=== PATIENT | male | born 1960 | race African-American/Black ===

== ENCOUNTER 2017-06-20 10:03 | Emergency (ER) | payer SELFPAY ==
--- NOTE | 2017-06-20 10:44 | ER Document Report ---
ED ENT - General Chief Complaint: Sore Throat Stated Complaint: SORE THROAT Time Seen by Provider: 06/20/17 10:34 Notes: 56 yo male c/o swelling to throat x 2 days TRAVEL OUTSIDE OF THE [place] IN LAST 30 DAYS: No - HPI Patient complains to provider of: Throat problem Onset: Yesterday Onset/Duration: Gradual Quality of pain: Dull Location of pain: Throat Associated symptoms: None, Difficulty swallowing, Swollen glands. denies: Chills, Drooling, Hoarse voice, Neck pain, Runny nose, Sinus drainage, Sore throat Similar symptoms previously: No Recently seen / treated by doctor: No - Related Data Allergies/Adverse Reactions: No Known Allergies Allergy (Unverified 06/20/17 10:08) Past Medical History - General Information source: Patient - Social History Smoking Status: Current Every Day Smoker Chew tobacco use (# tins/day): No Frequency of alcohol use: Social Drug Abuse: None Lives with: Family Family History: Reviewed & Not Pertinent - Past Medical History Cardiac Medical History: Reports: Hx Hypercholesterolemia, Hx Hypertension Renal/ Medical History: Denies: Hx Peritoneal Dialysis Surgical Hx: Negative - Immunizations Hx Diphtheria, Pertussis, Tetanus Vaccination: Yes Review of Systems - Review of Systems Constitutional: No symptoms reported EENT: See HPI Cardiovascular: No symptoms reported Respiratory: No symptoms reported Gastrointestinal: No symptoms reported Genitourinary: No symptoms reported Male Genitourinary: No symptoms reported Musculoskeletal: No symptoms reported Skin: No symptoms reported Hematologic/Lymphatic: No symptoms reported Neurological/Psychological: No symptoms reported Physical Exam - Vital signs Vitals: Temp Pulse Resp BP Pulse Ox 97.7 F 82 16 167/114 H 97 06/20/17 10:08 06/20/17 10:08 06/20/17 10:08 06/20/17 10:08 06/20/17 10:08 Interpretation: Normal - General General appearance: Appears well, Alert - HEENT Head: Normocephalic, Atraumatic Eyes: Normal Conjunctiva: Normal Pupils: PERRL External canal: Normal Tympanic membrane: Normal Mouth/Lips: Normal Mucous membranes: Normal, Moist Pharynx: Erythema Neck: Normal, Supple - Respiratory Respiratory status: No respiratory distress Chest status: Nontender Breath sounds: Normal Chest palpation: Normal - Cardiovascular Rhythm: Regular Heart sounds: Normal auscultation Murmur: No - Abdominal Inspection: Normal Distension: No distension Bowel sounds: Normal Tenderness: Nontender Organomegaly: No organomegaly - Back Back: Normal, Nontender - Extremities General upper extremity: Normal inspection, Nontender, Normal color, Normal ROM , Normal temperature General lower extremity: Normal inspection, Nontender, Normal color, Normal ROM , Normal temperature, Normal weight bearing. No: Monty's sign - Neurological Neuro grossly intact: Yes Cognition: Normal Orientation: AAOx4 [place] Coma Scale Eye Opening: Spontaneous [place] Coma Scale Verbal: Oriented [place] Coma Scale Motor: Obeys Commands [place] Coma Scale Total: 15 Speech: Normal Motor strength normal: LUE, RUE, LLE, RLE Sensory: Normal - Psychological Associated symptoms: Normal affect, Normal mood - Skin Skin Temperature: Warm Skin Moisture: Dry Skin Color: Normal Course - Re-evaluation Re-evalutation: 06/20/17 11:45 rapid strep negative. soft tissue neck xray normal. all results reviewed with patient. no suspicion for Joselo's, peristonsllar abscess. no airway compromise. will DC home on 4 days of prednisone for soft tissue swelling. pt stable for discharge and agreeable with plan 06/20/17 11:48 BP is elevated. pt is aware. noncompliant with medication. pt is asymptomatic. no signs of hypertensive crisis - Vital Signs Vital signs: Temp Pulse Resp BP Pulse Ox 97.7 F 82 16 167/114 H 97 06/20/17 10:08 06/20/17 10:08 06/20/17 10:08 06/20/17 10:08 06/20/17 10:08 Discharge - Discharge Clinical Impression: Pharyngitis Qualifiers: Pharyngitis/tonsillitis etiology: unspecified etiology Qualified Code(s): J02.9 - Acute pharyngitis, unspecified Condition: Stable Disposition: HOME, SELF-CARE Instructions: Sore Throat ([facility]), Steroid Medication Additional Instructions: your rapid strep and throat xray are negative today take oral steroids as prescribed for swelling return to ER for any worsening Prescriptions: Prednisone [Deltasone 20 mg Tablet] 2 tab PO BID #16 tablet Forms: Elevated Blood Pressure
--- NOTE | 2017-06-20 11:41 | RADIOLOGY REPORT (SQ) ---
EXAM DESCRIPTION: SOFT TISSUE NECK COMPLETED DATE/TIME: 06/20/2017 11:28 am REASON FOR STUDY: throat swelling COMPARISON: None. NUMBER OF VIEWS: Two views. TECHNIQUE: AP and lateral radiographic image of the soft tissues of the neck. LIMITATIONS: None. FINDINGS: EPIGLOTTIS: Normal. Contour normal. Aryepiglottic folds normal. PREVERTEBRAL SOFT TISSUES: Normal. No soft tissue swelling. SUBGLOTTIC AREA: Normal. No narrowing. RETROPHARYNGEAL SPACE: Normal. No soft tissue masses. BONY STRUCTURES: No significant findings. LUNG APICES: Normal. OTHER: No radiopaque foreign body. No other significant finding. IMPRESSION: NEGATIVE STUDY OF THE SOFT TISSUES OF THE NECK. TECHNICAL DOCUMENTATION: JOB ID: [id number] [employer]- All Rights Reserved
[2017-06-20 11:45] VITALS: BP 158/116
== END 2017-06-20 11:50 | disposition home or self-care (01) ==
LOC: ER 10:03
DX: J02.9 Acute pharyngitis, unspecified (principal); F17.200 Nicotine dependence, unspecified, uncomplicated; I10 Essential (primary) hypertension; Z91.14 Patient's other noncompliance with medication regimen
CPT/HCPCS: 70360; 87070; 87880; 99283

== ENCOUNTER → 2019-02-03 | Outpatient (CLI) | payer SELFPAY ==
[2019-02-03 11:32] LABS: HEMATOCRIT 46.2 % (37.9-51.0); HEMOGLOBIN 15.7 g/dL (13.5-17.0); MEAN CORPUSCULAR HEMOGLOBIN 30.1 pg (27.0-33.4); MEAN CORPUSCULAR HGB CONC 34.1 g/dL (32.0-36.0); MEAN CORPUSCULAR VOLUME 88 fl (80-97); PLATELET COUNT 164 10^3/uL (150-450); RED BLOOD COUNT 5.23 10^6/uL (4.35-5.55); RED CELL DISTRIBUTION WIDTH 15.2 % (11.5-14.0); WHITE BLOOD COUNT 3.6 10^3/uL (4.0-10.5)
[2019-02-03 11:53] LABS: ALANINE AMINOTRANSFERASE 25 U/L (21-72); ALBUMIN 4.1 g/dL (3.5-5.0); ALKALINE PHOSPHATASE 74 U/L (38-126); ASPARTATE AMINO TRANSFERASE 24 U/L (17-59); BILIRUBIN,DIRECT 0.2 mg/dL (0.0-0.4); BILIRUBIN,TOTAL 0.5 mg/dL (0.2-1.3); TOTAL PROTEIN 8.5 g/dL (6.3-8.2)
--- NOTE | 2019-02-03 12:34 | RADIOLOGY REPORT (SQ) ---
EXAM DESCRIPTION: U/S ABDOMEN LIMITED W/O DOP COMPLETED DATE/TIME: 02/03/2019 12:18 pm REASON FOR STUDY: HEPATOMEGALY, NOT ELSEWHERE CLASSIFIED (R16.0) R80.9 PROTEINURIA, UNSPECIFIED R82 .90 UNSPECIFIED ABNORMAL FINDINGS IN URINE R16.0 HEPATOMEGALY, NOT ELSEWHERE CLASSIFIED COMPARISON: None. TECHNIQUE: Dynamic and static grayscale images acquired of the abdomen and recorded on PACS. Additio nal selected color Doppler and spectral images recorded. LIMITATIONS: None. FINDINGS: PANCREAS: No masses. Visualized pancreatic duct normal caliber. LIVER: Normal size Echo texture normal. No focal masses. LIVER VASCULATURE: Normal directional flow of the main portal vein and hepatic veins. GALLBLADDER: No stones. Normal wall thickness. No pericholecystic fluid. ULTRASOUND-DETECTED IRIZARRY'S SIGN: Negative. INTRAHEPATIC DUCTS AND COMMON DUCT: CBD and intrahepatic ducts normal caliber. No filling defects. INFERIOR VENA CAVA: Normal flow. AORTA: Scattered plaque. AP diameter of the proximal aorta is 3.0 cm, mid aorta 2.4 cm, distal aorta 1.7 cm. RIGHT KIDNEY: Normal size. Normal echogenicity. No solid or suspicious masses. No hydronephros is. No calcifications. PERITONEAL AND RIGHT PLEURAL SPACE: No ascites or effusions. OTHER: No other significant findings. IMPRESSION: 1. 3.0 CM ABDOMINAL AORTIC ANEURYSM INVOLVING THE PROXIMAL ABDOMINAL AORTA. RECOMMEND FOLLOW-UP IN 3 YEARS UNLESS THERE ARE CLINICAL INDICATIONS FOR MORE FREQUENT FOLLOW-UP. 2. OTHERWISE UNREMARKABLE RIGHT UPPER QUADRANT ULTRASOUND VISUALIZED. NO ABNORMAL FINDINGS IN THE LIVER. COMMENT: Aortic aneurysm imaging followup: 3.0-3.4 cm Every 3 years *Based upon the Society for Vascular Surgery Guidelines: J Vasc Surg. 2009 Oct;50(4 Suppl):S2-49 *For aortas of maximum diameter of 2.6-2.9 cm meeting the criteria for AAA (?1.5 x proximal normal se gment) TECHNICAL DOCUMENTATION: JOB ID: [id number] [employer]- All Rights Reserved Reading location - IP/workstation name: [email or web address]
[2019-02-04 07:44] LABS: HEPATITIS A AB IGM Negative (Negative); HEPATITIS B CORE AB IGM Negative (Negative); HEPATITS B SURFACE ANTIGEN Negative (Negative)
[2019-02-04 09:03] LABS: HEPATITIS C VIRUS ANTIBODY <0.1 s/co ratio (0.0-0.9)
== END ==
LOC: LAB 11:08
PROVIDERS: ATTEND Family Medicine
DX: I71.4 Abdominal aortic aneurysm, without rupture (principal); R80.9 Proteinuria, unspecified; R31.9 Hematuria, unspecified; R16.0 Hepatomegaly, not elsewhere classified
CPT/HCPCS: 36415; 76705; 80074; 80076; 82272; 85027

== ENCOUNTER 2019-03-27 20:13 | Emergency (ER) | payer SELFPAY ==
[2019-03-27] MEDS ORDERED: ASPIRIN 81 MG TABLET, CHEWABLE PO ONE (21:01)
--- NOTE | 2019-03-27 21:17 | ER Document Report ---
ED General - General Chief Complaint: Shortness Of Breath Stated Complaint: SHORTNESS OF BREATH Time Seen by Provider: 03/27/19 21:00 TRAVEL OUTSIDE OF THE [place] IN LAST 30 DAYS: No - HPI Notes: Patient is a 58-year-old male that presents to the emergency department for chief complaint of headache, lightheadedness and shortness of breath. Patient states that he has been being worked up by cardiology over the last week for new diagnosis of "a weak heart muscle and leaky valve". Patient states he has had progressive shortness of breath which is worse with lying flat for the last few weeks and was seen at [facility] emergency room last week. He had a follow-up appointment with a smokehouse worker Dr. Fletcher yesterday who performed echo which showed leaky heart valve. Patient was started on lisinopril, carvedilol, and Lasix. After taking these medications today he states he started to get a left parietal headache. It was gradual in onset and throbbing in nature. He denies any aggravating or relieving factors. He did tried BC powder with no relief of the headache. He reports associated lightheadedness but denies full syncope. He denies any associated vision carrero ges, nausea/vomiting, numbness and weakness. Patient states that he occasionally gets headaches but usually the BC powder resolves them. He denies any recent chest pain. He states his smokehouse worker is in the process of getting him scheduled for a stress test. He does state the shortness of breath seems to be gradually getting worse but has not significantly changed today. Past Medical History: Hypertension, hyperlipidemia Past Surgical History: Negative Social History: Daily tobacco, occasional alcohol, denies drug use Family History: Mother has diabetes Allergies: Reviewed, see documented allergy list. REVIEW OF SYSTEMS: CONSTITUTIONAL : No fever No chills No diaphoresis No recent illness EENT: No vision changes No congestion No sore throat CARDIOVASCULAR: No chest pain No palpitations RESPIRATORY: shortness of breath No cough Orthopnea GASTROINTESTINAL: No abdominal pain No nausea No vomiting No diarrhea GENITOURINARY: No dysuria No hematuria No difficulty urinating MUSCULOSKELETAL: No back pain No leg pain No arm pain SKIN: No rashes No lesions LYMPHATIC: No swollen, enlarged glands. NEUROLOGICAL: lightheadedness headache No weakness No paresthesias PSYCHIATRIC: No anxiety No depression PHYSICAL EXAMINATION: Vital signs reviewed, nursing noted reviewed. GENERAL: Well-appearing, well-nourished and in no acute distress. HEAD: Atraumatic, normocephalic. EYES: Eyes appear normal, extraocular movements intact, sclera anicteric, conjunctiva are normal. ENT: nares patent, oropharynx clear without exudates. Moist mucous membranes. NECK: Normal range of motion, supple without lymphadenopathy LUNGS: Breath sounds clear to auscultation bilaterally and equal. No wheezes rales or rhonchi. HEART: Regular rate and rhythm without murmurs ABDOMEN: Soft, nontender, normoactive bowel sounds. No rebound, guarding, or rigidity. No masses appreciated. EXTREMITIES: Nontender, good range of motion, no pitting or edema. NEUROLOGICAL: No focal neurological deficits. Moves all extremities spontaneously Motor and sensory grossly intact on exam. PSYCH: Normal mood, normal affect. SKIN: Warm, Dry, normal turgor, no rashes or lesions noted on exposed skin - Related Data Allergies/Adverse Reactions: No Known Allergies Allergy (Unverified 06/20/17 10:08) Past Medical History - Social History Smoking Status: Current Every Day Smoker Family History: Reviewed & Not Pertinent - Past Medical History Cardiac Medical History: Reports: Hx Hypercholesterolemia, Hx Hypertension Renal/ Medical History: Denies: Hx Peritoneal Dialysis - Immunizations Hx Diphtheria, Pertussis, Tetanus Vaccination: Yes Physical Exam - Vital signs Vitals: Temp Pulse Resp BP Pulse Ox 97.5 F 46 L 20 135/97 H 99 03/27/19 20:30 03/27/19 20:30 03/27/19 20:30 03/27/19 20:30 03/27/19 20:30 Course - Re-evaluation Re-evalutation: 03/27/19 21:16 Vitals reviewed. Nursing notes reviewed. Patient is well-appearing and in no acute distress. His EKG is abnormal showing deep T wave inversions which patient states he believes is what they told him was present a week ago. I am currently trying to request records from [facility] for comparison EKG. Patient is not having any chest pain currently. 03/27/19 23:08 Patient's lab work is unremarkable. His troponin is 0.031 which is indeterminate. Chest x-ray shows no acute pulmonary edema or other cardiopulmonary process. CT scan of the brain is negative. On reevaluation patient states his headache has completely resolved. He denies any current shortness of breath. He has not had any chest pain throughout the last few days or his stay in the emergency room. I am currently waiting on medical records from [facility] to compare his EKG and blood work. I suspect his headache was related to his hypertension. Laboratory 03/27/19 03/27/19 03/27/19 21:05 21:05 21:05 WBC 3.6 L RBC 5.28 Hgb 16.0 Hct 47.7 MCV 90 MCH 30.3 MCHC 33.6 RDW 14.8 H Plt Count 197 Seg Neutrophils % 27.5 L Lymphocytes % 48.4 H Monocytes % 19.3 H Eosinophils % 4.1 Basophils % 0.7 Absolute Neutrophils 1.0 L Absolute Lymphocytes 1.7 Absolute Monocytes 0.7 Absolute Eosinophils 0.1 Absolute Basophils 0.0 Sodium 140.0 Potassium 3.9 Chloride 106 Carbon Dioxide 25 Anion Gap 9 BUN 18 Creatinine 1.17 Est GFR ( Amer) > 60 Est GFR (Non-Af Amer) > 60 Glucose 99 Calcium 9.8 Total Bilirubin 0.5 Direct Bilirubin 0.3 Neonat Total Bilirubin Not Reportable Neonat Direct Bilirubin Not Reportable Neonat Indirect Bili Not Reportable AST 38 ALT 30 Alkaline Phosphatase 62 Troponin I 0.031 Total Protein 8.7 H Albumin 4.0 Chest X-Ray 03/27/19 21:01 IMPRESSION: 1. No acute pulmonary findings. Head CT 03/27/19 21:13 IMPRESSION: Minor small vessel ischemic change. Negative for acute intracranial abnormality TECHNICAL DOCUMENTATION: Quality ID # [id number]: Final reports with documentation of one or more dose reduction techniques (e.g., Automated exposure control, adjustment of the mA and/or kV according to patient size, use of iterative reconstruction technique) copyright 2011 [employer]- All Rights Reserved 03/27/19 23:49 I was able to obtain some records from [facility]. No blood work was able to be obtained or image of an EKG however there is a description from his discharge summary of his EKG which showed LVH with strain pattern and left axis. The strain pattern is likely the deep T wave inversions that are being seen today on his EKG. He had a echo which showed EF of 25 to 30% with global LV failure as well as mitral and aortic regurg. It was recommended that patient have a nuc med stress test in the near future. Patient currently is asymptomatic and hemodynamically stable. I did advise that he follow closely with his smokehouse worker to obtain stress test. He was advised to return to the emergency room for any new or worsening symptoms including chest pain or shortness of breath. Patient is in agreement with this plan of care and stable at discharge. - Vital Signs Vital signs: Temp Pulse Resp BP Pulse Ox 97.6 F 46 L 20 133/104 H 97 03/27/19 22:00 03/27/19 20:30 03/27/19 22:22 03/27/19 22:22 03/27/19 22:22 - Laboratory Result Diagrams: 03/27/19 21:05 03/27/19 21:05 Laboratory results interpreted by me: 03/27/19 03/27/19 21:05 21:05 WBC 3.6 L RDW 14.8 H Seg Neutrophils % 27.5 L Lymphocytes % 48.4 H Monocytes % 19.3 H Absolute Neutrophils 1.0 L Total Protein 8.7 H - EKG Interpretation by Me Additional EKG results interpreted by me: 03/27/19 21:17 Interpreted by myself 2025: Normal sinus rhythm, rate 98, left axis, LVH, prolonged QT, QTC 527, deep T wave inversions in precordial and lateral leads, no STEMI Discharge - Discharge Clinical Impression: Shortness of breath, Abnormal EKG Cephalgia Qualifiers: Headache type: unspecified Headache chronicity pattern: acute headache Intractability: not intractable Qualified Code(s): R51 - Headache Hypertension Qualifiers: Hypertension type: unspecified Qualified Code(s): I10 - Essential (primary) hypertension Condition: Stable Disposition: HOME, SELF-CARE Instructions: Congestive Heart Failure ([facility]) Additional Instructions: Please return to the emergency department if you have any worsening, or concern of your symptoms. Please return to the emergency department if you develop chest pain, difficulty breathing, severe abdominal pain, or ongoing vomiting. Please follow-up with your primary care physician in 2-3 days and any other recommended physicians. If prescribed, take all medications as directed. If you have any questions or concerns do not hesitate to return the emergency department for evaluation. Please follow with your smokehouse worker in the next 2 to 3 days for close reevaluation Referrals: BRISA EDWARDS MD [NO LOCAL MD] - Follow up tomorrow
[2019-03-27 21:18] LABS: ABSOLUTE EOSINOPHILS # (AUTO) 0.1 10^3/uL (0.0-0.6); ABSOLUTE LYMPHOCYTES (AUTO) 1.7 10^3/uL (0.5-4.7); ABSOLUTE MONOCYTES (AUTO) 0.7 10^3/uL (0.1-1.4); BASOPHILS % (AUTO) 0.7 % (0-2); EOSINOPHILS % (AUTO) 4.1 % (0-6); HEMATOCRIT 47.7 % (37.9-51.0); LYMPHOCYTES % (AUTO) 48.4 % (13-45); MEAN CORPUSCULAR HEMOGLOBIN 30.3 pg (27.0-33.4); MEAN CORPUSCULAR HGB CONC 33.6 g/dL (32.0-36.0); MEAN CORPUSCULAR VOLUME 90 fl (80-97); MONOCYTES % (AUTO) 19.3 % (3-13); PLATELET COUNT 197 10^3/uL (150-450); RED BLOOD COUNT 5.28 10^6/uL (4.35-5.55); RED CELL DISTRIBUTION WIDTH 14.8 % (11.5-14.0); SEGMENTED NEUTROPHILS % (AUTO) 27.5 % (42-78); TOTAL CELLS COUNTED % (AUTO) 100 %; WHITE BLOOD COUNT 3.6 10^3/uL (4.0-10.5)
[2019-03-27 21:36] LABS: ALANINE AMINOTRANSFERASE 30 U/L (21-72); ALKALINE PHOSPHATASE 62 U/L (38-126); ANION GAP 9 (5-19); ASPARTATE AMINO TRANSFERASE 38 U/L (17-59); BILIRUBIN,DIRECT 0.3 mg/dL (0.0-0.4); BILIRUBIN,TOTAL 0.5 mg/dL (0.2-1.3); BLOOD UREA NITROGEN 18 mg/dL (7-20); CALCIUM 9.8 mg/dL (8.4-10.2); CARBON DIOXIDE 25 mmol/L (22-30); CHLORIDE 106 mmol/L (98-107); GLUCOSE 99 mg/dL (75-110); POTASSIUM 3.9 mmol/L (3.6-5.0); TOTAL PROTEIN 8.7 g/dL (6.3-8.2)
--- NOTE | 2019-03-27 21:55 | RADIOLOGY REPORT (SQ) ---
EXAM DESCRIPTION: [facility]: XR CHEST 1 VIEW CLINICAL HISTORY: 58 years Male, chest pain COMPARISON: None. FINDINGS: There is minimal linear atelectasis in the right midlung field. No focal acute infiltrates. No pneumothorax or pleural effusion. Mediastinum is within normal limits for this positioning. Bony structures are unremarkable. IMPRESSION: 1. No acute pulmonary findings.
--- NOTE | 2019-03-27 22:19 | RADIOLOGY REPORT (SQ) ---
EXAM DESCRIPTION: CT HEAD WITHOUT IV CONTRAST COMPLETED DATE/TME: 03/27/2019 21:13 CLINICAL HISTORY: 58 years, Male, headache COMPARISON: None. TECHNIQUE: 205 Images stored on PACS. All CT scanners at this facility use dose modulation, iterative reconstruction, and/or weight based dosing when appropriate to reduce radiation dose to as low as reasonably achievable (ALARA). [facility]: Dose Right [facility]: CareDose [facility]: Dose Right [facility]: Teradose 4D [facility]: [employer] LIMITATIONS: None. FINDINGS: Globes are intact. Paranasal sinuses and mastoid air cells are unremarkable. No displaced or depressed skull fracture. No intra or extra-axial hemorrhage. CT is limited for evaluation of acute infarct. No CT evidence for large or territorial acute infarct. No mass or midline shift. Minimal hypodensities in the periventricular white matter, likely sequelae of minor small vessel ischemic change. IMPRESSION: Minor small vessel ischemic change. Negative for acute intracranial abnormality TECHNICAL DOCUMENTATION: Quality ID # [id number]: Final reports with documentation of one or more dose reduction techniques (e.g., Automated exposure control, adjustment of the mA and/or kV according to patient size, use of iterative reconstruction technique) copyright 2010 [employer]- All Rights Reserved
--- NOTE | 2019-03-27 23:18 | EKG REPORT ---
SEVERITY:- ABNORMAL ECG - SINUS RHYTHM LEFT ATRIAL ABNORMALITY LVH WITH SECONDARY REPOLARIZATION ABNORMALITY PROBABLE INFERIOR INFARCT, AGE INDETERMINATE REPOL ABNRM, PROBABLE ISCHEMIA, ANT-LAT LEADS PROLONGED QT INTERVAL : Confirmed by: Jea Solorzano 27-Mar-2019 23:16:54
[2019-03-28 00:24] VITALS: BP 136/95
--- NOTE | 2019-03-30 22:38 | EKG REPORT ---
SEVERITY:- ABNORMAL ECG - SINUS RHYTHM MULTIPLE ATRIAL PREMATURE COMPLEXES LEFT ATRIAL ABNORMALITY LAD, CONSIDER LAFB OR INFERIOR INFARCT CONSIDER RIGHT VENTRICULAR HYPERTROPHY LVH WITH SECONDARY REPOLARIZATION ABNORMALITY ABNORMAL T, PROBABLE ISCHEMIA, LATERAL LEADS : Confirmed by: Jae Solorzano 30-Mar-2019 22:38:08
== END 2019-03-28 00:35 | disposition home or self-care (01) ==
LOC: ER 20:13
DX: I11.0 Hypertensive heart disease with heart failure (principal); I50.1 Left ventricular failure, unspecified; I38 Endocarditis, valve unspecified; R51 Headache; R42 Dizziness and giddiness; R06.02 Shortness of breath; F17.200 Nicotine dependence, unspecified, uncomplicated
CPT/HCPCS: 36415; 70450; 71045; 80053; 84484; 85025; 93005; 93010; 99285

== ENCOUNTER 2019-03-30 02:57 | Observation (INO) | payer SELFPAY ==
[2019-03-30] MEDS ORDERED: ASPIRIN 81 MG TABLET, CHEWABLE PO ONE (03:05)
--- NOTE | 2019-03-30 04:01 | RADIOLOGY REPORT (SQ) ---
EXAM DESCRIPTION: XR CHEST 1 VIEW COMPLETED DATE/TME: 03/30/2019 03:05 CLINICAL HISTORY: 58 years, Male, CP COMPARISON: 03/27/2019 chest NUMBER OF VIEWS: 1 TECHNIQUE: Portable chest LIMITATIONS: None. FINDINGS: Stable cardiomegaly. Scarring right midlung. Lungs otherwise clear. No pneumothorax IMPRESSION: Stable chest copyright 2010 [employer]- All Rights Reserved
[2019-03-30 04:02] LABS: ABSOLUTE EOSINOPHILS # (AUTO) 0.2 10^3/uL (0.0-0.6); ABSOLUTE LYMPHOCYTES (AUTO) 2.1 10^3/uL (0.5-4.7); ABSOLUTE MONOCYTES (AUTO) 0.7 10^3/uL (0.1-1.4); ABSOLUTE NEUT (AUTO) 1.3 10^3/uL (1.7-8.2); EOSINOPHILS % (AUTO) 4.3 % (0-6); HEMATOCRIT 48.4 % (37.9-51.0); HEMOGLOBIN 16.2 g/dL (13.5-17.0); LYMPHOCYTES % (AUTO) 49.2 % (13-45); MEAN CORPUSCULAR HEMOGLOBIN 30.5 pg (27.0-33.4); MEAN CORPUSCULAR HGB CONC 33.5 g/dL (32.0-36.0); MEAN CORPUSCULAR VOLUME 91 fl (80-97); MONOCYTES % (AUTO) 15.9 % (3-13); PLATELET COUNT 195 10^3/uL (150-450); RED BLOOD COUNT 5.31 10^6/uL (4.35-5.55); RED CELL DISTRIBUTION WIDTH 15.1 % (11.5-14.0); SEGMENTED NEUTROPHILS % (AUTO) 29.6 % (42-78); TOTAL CELLS COUNTED % (AUTO) 100 %; WHITE BLOOD COUNT 4.3 10^3/uL (4.0-10.5)
[2019-03-30 04:07] LABS: INTERNATIONAL RATION (INR) 0.97; PROTHROMBIN TIME 13.4 SEC (11.4-15.4)
[2019-03-30 04:27] LABS: ALANINE AMINOTRANSFERASE 34 U/L (21-72); ALBUMIN 4.1 g/dL (3.5-5.0); ALKALINE PHOSPHATASE 78 U/L (38-126); ANION GAP 10 (5-19); ASPARTATE AMINO TRANSFERASE 43 U/L (17-59); BILIRUBIN,DIRECT 0.4 mg/dL (0.0-0.4); BILIRUBIN,TOTAL 0.4 mg/dL (0.2-1.3); BLOOD UREA NITROGEN 21 mg/dL (7-20); CALCIUM 10.3 mg/dL (8.4-10.2); CARBON DIOXIDE 29 mmol/L (22-30); CHLORIDE 104 mmol/L (98-107); CREATINE KINASE 65 U/L (55-170); GLUCOSE 96 mg/dL (75-110); SODIUM 142.7 mmol/L (137-145); TOTAL PROTEIN 8.9 g/dL (6.3-8.2)
[2019-03-30 04:38] LABS: CREATINE KINASE MB 0.3 ng/mL (<4.55); TROPONIN I 0.024 ng/mL
--- NOTE | 2019-03-30 04:49 | ER Document Report ---
ED Cardiac - General Chief Complaint: Chest Pain Stated Complaint: CHEST PAIN Time Seen by Provider: 03/30/19 03:07 Notes: Patient is a 58-year-old male presents to the emergency department with chief complaint of chest pain. Patient states he experienced a dull chest pain and some shortness of breath tonight in his left side of his chest radiating to his left arm. States EMS was alerted patient was given aspirin and 1 sublingual nitroglycerin. Patient states his pain has since subsided. Patient's denying any nausea, vomiting, abdominal pain, fever. Past medical history: Congestive heart failure, hypertension, hyperlipidemia Medications: Lisinopril, carvedilol, potassium, Lasix Allergies: None Patient states he is an everyday smoker. TRAVEL OUTSIDE OF THE [place] IN LAST 30 DAYS: No - Related Data Allergies/Adverse Reactions: No Known Allergies Allergy (Unverified 06/20/17 10:08) Past Medical History - General Information source: Patient - Social History Smoking Status: Current Every Day Smoker Chew tobacco use (# tins/day): No Frequency of alcohol use: Social Drug Abuse: None Family History: Reviewed & Not Pertinent Patient has suicidal ideation: No Patient has homicidal ideation: No - Past Medical History Cardiac Medical History: Reports: Hx Hypercholesterolemia, Hx Hypertension Renal/ Medical History: Denies: Hx Peritoneal Dialysis - Immunizations Hx Diphtheria, Pertussis, Tetanus Vaccination: Yes Review of Systems - Review of Systems Constitutional: denies: Fever EENT: No symptoms reported Cardiovascular: See HPI Respiratory: See HPI Gastrointestinal: No symptoms reported Genitourinary: No symptoms reported Male Genitourinary: No symptoms reported Musculoskeletal: No symptoms reported Skin: No symptoms reported Hematologic/Lymphatic: No symptoms reported Neurological/Psychological: No symptoms reported Physical Exam - Vital signs Vitals: Pulse Ox 98 03/30/19 03:05 - Notes Notes: GENERAL: Alert, interacts well. No acute distress. HEAD: Normocephalic, atraumatic. EYES: Pupils equal, round, and reactive to light. Extraocular movements intact. ENT: Oral mucosa moist, tongue midline. NECK: Full range of motion. Supple. Trachea midline. LUNGS: Clear to auscultation bilaterally, no wheezes, rales, or rhonchi. No respiratory distress. HEART: Regular rate and rhythm. No murmur Chest: No pain upon palpation anterior posterior chest wall, no crepitus felt, no erythema or ecchymosis noted. ABDOMEN: Soft, non-tender. Non-distended. Bowel sounds present in all 4 quadrants. EXTREMITIES: Moves all 4 extremities spontaneously. No edema, normal radial and dorsalis pedis pulses bilaterally. No cyanosis. BACK: no cervical, thoracic, lumbar midline tenderness. No saddle anesthesia, normal distal neurovascular exam. NEUROLOGICAL: Alert and oriented x3. Normal speech. cranial nerves II through XII grossly intact PSYCH: Normal affect, normal mood. SKIN: Warm, dry, normal turgor. No rashes or lesions noted. Course - Re-evaluation Re-evalutation: 03/30/19 04:50 Note from Sd Bosch's chart on 03/27/2019 (I was able to obtain some records from [facility]. No blood work was able to be obtained or image of an EKG however there is a description from his discharge summary of his EKG which showed LVH with strain pattern and left axis. The strain pattern is likely the deep T wave inversions that are being seen today on his EKG. He had a echo which showed EF of 25 to 30% with global LV failure as well as mitral and aortic regurg. It was recommended that patient have a nuc med stress test in the near future.) MY COURSE: At todays visit Pts trop reads 0.024. He continues to be chest pain-free after nitro administration by EMS. Attempting to call hospitalist Dr. Gómez for admission for chest pain rule out. Patient's EKG shows a sinus rhythm rate 82, QTc 453, LVH. No ST segment elevations or depressions noted. 03/30/19 05:00 Dr. Gómez will accept the patient for chest pain rule out. - Vital Signs Vital signs: Temp Pulse Resp BP Pulse Ox 98.0 F 25 H 138/106 H 97 03/30/19 03:06 03/30/19 04:01 03/30/19 04:01 03/30/19 04:01 - Laboratory Result Diagrams: 03/30/19 02:45 03/30/19 02:45 Laboratory results interpreted by me: 03/30/19 03/30/19 02:45 02:45 RDW 15.1 H Seg Neutrophils % 29.6 L Lymphocytes % 49.2 H Monocytes % 15.9 H Absolute Neutrophils 1.3 L BUN 21 H Creatinine 1.27 H Est GFR (Non-Af Amer) 58 L Calcium 10.3 H Total Protein 8.9 H Discharge - Discharge Clinical Impression: Chest pain Qualifiers: Chest pain type: unspecified Qualified Code(s): R07.9 - Chest pain, unspecified Condition: Stable Disposition: ADMITTED INPATIENT Admitting Provider: Dalia (Hospitalist) Unit Admitted: Telemetry
[2019-03-30] MEDS ORDERED: ZOLPIDEM TARTRATE 5 MG TABLET PO PRN (05:13)
[2019-03-30] MEDS ORDERED: MAGNESIUM HYDROXIDE SUSP 30 ML UDCUP PO PRN (05:13)
[2019-03-30] MEDS ORDERED: MAG HYDROX/AL HYDROX/SIMETH SUSP 30 ML UDCUP PO PRN (05:13)
[2019-03-30] MEDS ORDERED: ONDANSETRON HCL INJ/PF 4 MG/2 ML SDV IV PRN (05:13)
[2019-03-30] MEDS ORDERED: MORPHINE SULFATE 10 MG/ML INJ IV PRN ×4 (05:17→05:27)
[2019-03-30] MEDS ORDERED: HYDRALAZINE HCL INJ/PF 20 MG/1 ML SDV IV PRN (05:17)
[2019-03-30] MEDS ORDERED: NICOTINE 21 MG/24 HR PATCH.TD24 TD PRN (05:17)
[2019-03-30] MEDS ORDERED: NITROGLYCERIN 0.4 MG/TAB 25 TAB/BOTTLE SL PRN (05:17)
--- NOTE | 2019-03-30 06:30 | PDOC H&P ---
History of Present Illness Admission Date/PCP: 03/30/2019 No Local PCP Patient complains of: Chest pain History of Present Illness: JOSH GONZALEZ is a 58 year old male who presented via EMS to the emergency room with an acute history of chest pain. He admits to sudden onset of a moderate, continuous, unchanging dull pain in his left chest just above his left nipple with radiation to his left anterior shoulder lasting for approximately 1 hour prior to arrival of EMS and receiving a dose of nitroglycerin and an aspirin. The pain was accompanied by minimal dyspnea lasting for 1 to 2 ruperto shan, however the patient complains of the same short lived minimal dyspneic episodes occurring about 1/h throughout the day without regard to rest or activity. He denies prior similar episodes of chest pain but has chronic recurrent dyspnea as previously described and was recently seen for a episode of palpitations with tachycardia. His pain responded immediately to treatment with 1 sublingual nitroglycerin in the ambulance and 324 mg of aspirin (treated). In the ER he was found to have a mildly elevated troponin level which was actually lower than the level he had on his visit 3 days earlier. Because of the patient's chest pain lasting for an hour he was admitted observation status for serial cardiac enzymes and a cardiac stress test. Past Medical History Cardiac Medical History: Reports: Hyperlipidema, Hypertension Denies: Atrial Fibrillation, DVT, Myocardial Infarction, Pulmonary Embolism Pulmonary Medical History: Reports: Bronchitis, Other - Frequent episodes of dyspnea lasting for 1 to 2 minutes Denies: Asthma, Chronic Obstructive Pulmonary Disease (COPD) EENT Medical History: Reports: Eyes - Prescription eye glasses Denies: Cataracts, Ears - Hearing aids Neurological Medical History: Denies: Hemorrhagic CVA, Ischemic CVA, Seizures Endocrine Medical History: Denies: Diabetes Mellitus Type 1, Diabetes Mellitus Type 2, Hyperthyroidism, Hypothyroidism Renal/ Medical History: Denies: Chronic Kidney Disease, Nephrolithiasis Malignancy Medical History: Reports: None GI Medical History: Denies: Cirrhosis, Hepatitis Musculoskeltal Medical History: Denies: Arthritis, Gout Skin Medical History: Denies: Eczema, Psoriasis Psychiatric Medical History: Reports: Tobacco Dependency Denies: Alcohol Dependency, Substance Abuse Traumatic Medical History: Reports: None Hematology: Denies: Anemia, Bleeding Tendencies Infectious Medical History: Reports: None Past Surgical History Past Surgical History: Reports: Other - Throat surgery, vasectomy Social History Information Source: Patient Lives with: Spouse/Significant other Smoking Status: Current Every Day Smoker Cigars Per Day: 4 - Inhales Frequency of Alcohol Use: Social - Drinks on weekends consuming approximately 1/5 of hard liquor over a 3 days of the weekend with one sixpack of beer also consumed. 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 Hx Recreational Drug Use: No Drugs: None Hx Prescription Drug Abuse: No - Advance Directive Resuscitation Status: Full Code Surrogate healthcare decision maker:: Oriana Gonzalez Family History Family History: CAD, DM, Hyperlipidemia, Hypertension, Other - Renal failure. d enies: Malignancy Parental Family History Reviewed: Yes Children Family History Reviewed: No Sibling(s) Family History Reviewed.: Yes Medication/Allergy Home Medications: Prednisone [Deltasone 20 mg Tablet] 2 tab PO BID #16 tablet 06/20/17 Allergies/Adverse Reactions: No Known Allergies Allergy (Unverified 06/20/17 10:08) Review of Systems Constitutional: ABSENT: chills, fever(s) Eyes: ABSENT: visual disturbances, other - Eye pain Ears: ABSENT: hearing changes, other - Ear pain Nose, Mouth, and Throat: ABSENT: mouth pain, sore throat Cardiovascular: PRESENT: as per HPI, chest pain, dyspnea on exertion - 1 to 2- minute episodes occurring about once an hour during the day every day for quite some time, palpitations - 3 days ago. ABSENT: edema, orthropnea Respiratory: PRESENT: as per HPI, dyspnea - 1 to 2-minute episodes occurring about once an hour during the day every day for quite some time. ABSENT: cough Gastrointestinal: ABSENT: abdominal pain, constipation, diarrhea, nausea, vomiting Genitourinary: ABSENT: dysuria, hematuria Musculoskeletal: ABSENT: back pain, joint swelling, muscle weakness Integumentary: ABSENT: pruritus, rash Neurological: ABSENT: confusion, convulsions, focal weakness, memory loss, syncope Psychiatric: ABSENT: anxiety, depression Endocrine: ABSENT: cold intolerance, heat intolerance Hematologic/Lymphatic: ABSENT: easy bleeding, easy bruising Physical Exam Vital Signs: Temp Pulse Resp BP Pulse Ox 98.0 F 25 H 138/106 H 97 03/30/19 03:06 03/30/19 04:01 03/30/19 04:01 03/30/19 04:01 Intake & Output 0503/29/19 03/30/19 23:59 23:59 23:59 Weight 73.5 kg General appearance: PRESENT: no acute distress, cooperative Head exam: PRESENT: atraumatic, normocephalic Eye exam: ABSENT: conjunctival injection, nystagmus, scleral icterus Ear exam: PRESENT: normal external ear exam. ABSENT: bleeding, drainage Mouth exam: PRESENT: dry mucosa, neck supple Neck exam: ABSENT: JVD, thyromegaly, tracheal deviation Respiratory exam: PRESENT: clear to auscultation chas, symmetrical, unlabored. ABSENT: chest wall tenderness Cardiovascular exam: PRESENT: clicks, gallop, RRR, rubs Pulses: PRESENT: normal radial pulses, normal dorsalis pedis pul Vascular exam: PRESENT: normal capillary refill. ABSENT: pallor GI/Abdominal exam: PRESENT: normal bowel sounds, soft Rectal exam: PRESENT: deferred Extremities exam: ABSENT: joint swelling, pedal edema Musculoskeletal exam: PRESENT: full ROM, normal inspection Neurological exam: PRESENT: alert, oriented to person, oriented to place, oriented to time, oriented to situation, CN II-XII grossly intact. ABSENT: mo tor sensory deficit - [id number] Psychiatric exam: PRESENT: appropriate affect, normal mood Skin exam: PRESENT: dry, intact, warm. ABSENT: jaundice, rash, urticaria Results Laboratory Results: 03/30/19 02:45 03/30/19 02:45 03/30/19 03/30/19 02:45 02:45 WBC 4.3 RBC 5.31 Hgb 16.2 Hct 48.4 MCV 91 MCH 30.5 MCHC 33.5 RDW 15.1 H Plt Count 195 Seg Neutrophils % 29.6 L Lymphocytes % 49.2 H Monocytes % 15.9 H Eosinophils % 4.3 Basophils % 1.0 Absolute Neutrophils 1.3 L Absolute Lymphocytes 2.1 Absolute Monocytes 0.7 Absolute Eosinophils 0.2 Absolute Basophils 0.0 Sodium 142.7 Potassium 4.0 Chloride 104 Carbon Dioxide 29 Anion Gap 10 BUN 21 H Creatinine 1.27 H Est GFR ( Amer) > 60 Est GFR (Non-Af Amer) 58 L Glucose 96 Calcium 10.3 H Total Bilirubin 0.4 AST 43 ALT 34 Alkaline Phosphatase 78 Total Protein 8.9 H Albumin 4.1 03/30/19 03/30/19 02:45 02:45 Creatine Kinase 65 CK-MB (CK-2) 0.30 Troponin I 0.024 Impressions: Chest X-Ray 03/30/19 03:05 IMPRESSION: Stable chest copyright 2011 [employer]- All Rights Reserved Assessment and Plan - Diagnosis (1) Chest pain Qualifiers: Chest pain type: unspecified Qualified Code(s): R07.9 - Chest pain, unspecified Is this a current diagnosis for this admission?: Yes Plan: Patient's chest pain will be evaluated with serial cardiac enzymes and he will be scheduled for a cardiac stress test using Cardiolite imaging. Patient's chest pain will be controlled utilizing morphine sulfate 2 to 4 mg IV every 2 hours as needed on a sliding scale basis. A recheck CBC, basic metabolic profile and magnesium level will be performed tomorrow morning. (2) Tobacco use disorder, severe, dependence Is this a current diagnosis for this admission?: Yes Plan: Tobacco use cessation is advised and counseled briefly. A nicotine patch will be available for the patient's use if desired. A UA and a urine drug screen will also be obtained. (3) Hyperlipidemia Qualifiers: Hyperlipidemia type: unspecified Qualified Code(s): E78.5 - Hyperlipidemia, unspecified Is this a current diagnosis for this admission?: Yes Plan: Patient's hyperlipidemia will be assessed utilizing a lipid profile and appropriate intervention will be undertaken as needed. A thyroid profile will also be obtained. (4) Hypertension Qualifiers: Hypertension type: essential hypertension Qualified Code(s): I10 - Essential (primary) hypertension Is this a current diagnosis for this admission?: Yes Plan: Patient's blood pressure will be monitored along with the rest of his vital signs throughout his hospital course. Introduction of antihypertensive agents will be after evaluation and his cardiac stress test is been completed. In the meantime patient's high blood pressure will be controlled utilizing hydralazine 20 mg IV every 4 hours as needed for systolic pressure greater than 160 or diastolic pressure greater than 100. - Time Time Spent with patient: 25-34 minutes Smoking Cessation Education: 3 to 10 minutes Medications reviewed and adjusted accordingly: Yes Anticipated discharge: Home - Inpatient Certification Based on my medical assessment, after consideration of the patient's comorbidities, presenting symptoms, or acuity I expect that the services needed warrant INPATIENT care.: No I certify that my determination is in accordance with my understanding of Medicare's requirements for reasonable and necessary INPATIENT services [42 CFR 412.3e].: No Medical Necessity: Need Close Monitoring Due to Risk of Patient Decompensation, Need For Continuous Telemetry Monitoring, Risk of Complication if Not Cared For in Hospital
[2019-03-30 06:41] LABS: APPEARANCE,URINE CLEAR; BILIRUBIN,URINE NEGATIVE (NEGATIVE); COLOR,URINE YELLOW; GLUCOSE, URINE NEGATIVE (NEGATIVE); KETONES,URINE NEGATIVE (NEGATIVE); LEUKOCYTE ESTERASE,URINE NEGATIVE (NEGATIVE); NITRITE,URINE NEGATIVE (NEGATIVE); PROTEIN,URINE NEGATIVE (NEGATIVE); URINE SPECIFIC GRAVITY 1.024; UROBILINOGEN,URINE NEGATIVE mg/dL (<2.0)
[2019-03-30 07:03] LABS: URINE AMPHETAMINES SCREEN NEGATIVE; URINE BARBITURATES SCREEN NEGATIVE; URINE BENZODIAZEPINES SCREEN NEGATIVE; URINE COCAINE SCREEN NEGATIVE; URINE MARIJUANA (THC) SCREEN NEGATIVE; URINE METHADONE SCREEN NEGATIVE; URINE PHENCYCLIDINE SCREEN NEGATIVE
[2019-03-30] MEDS ORDERED: ATORVASTATIN CALCIUM 10 MG TABLET PO ONE (08:00)
--- NOTE | 2019-03-30 08:32 | PDOC PROGRESS REPORT ---
Subjective Progress Note for:: 03/30/19 Subjective:: 58 year old male who presented via EMS to the emergency room with an acute history of chest pain. He admits to sudden onset of a moderate, continuous, unchanging dull pain in his left chest just above his left nipple with radiation to his left anterior shoulder lasting for approximately 1 hour prior to arrival of EMS and receiving a dose of nitroglycerin and an aspirin. The pain was accompanied by minimal dyspnea lasting for 1 to 2 minutes, however the patient complains of the same short lived minimal dyspneic episodes occurring about 1/h throughout the day without regard to rest or activity. He denies prior similar episodes of chest pain but has chronic recurrent dyspnea as previously described and was recently seen for a episode of palpitations with tachycardia. His pain responded immediately to treatment with 1 sublingual nitroglycerin in the ambul ance and 324 mg of aspirin (treated). In the ER he was found to have a mildly elevated troponin level which was actually lower than the level he had on his visit 3 days earlier. Because of the patient's chest pain lasting for an hour he was admitted observation status for serial cardiac enzymes and a cardiac stress test. 03/[id number]-auyb-old male came to the emergency room with chest pain. EKG shows T wave inversions. Initial troponin is 0.0234. Plan to do the follow-up EKGs and troponins. Patient is chest pain-free at the time of examination around 8 AM. Scheduled for the stress test tomorrow. Acute coronary syndrome protocol was implemented. Patient is on aspirin and atorvastatin and a lipid panel was requested for tomorrow. he is on Arixtra for DVT prophylaxis.. Pressure is 154/116 this morning and it came down to 115/80 just a while ago. Reason For Visit: CHEST PAIN Physical Exam Vital Signs: Temp Pulse Resp BP Pulse Ox 98.0 F 21 H 115/82 97 03/30/19 03:06 03/30/19 08:01 03/30/19 08:01 03/30/19 08:01 Intake & Output 03/29/19 03/30/19 03/31/19 06:59 06:59 06:59 Weight 73.5 kg General appearance: PRESENT: no acute distress Head exam: PRESENT: atraumatic Eye exam: PRESENT: PERRLA Teeth exam: PRESENT: poor dentation Neck exam: ABSENT: carotid bruit, JVD, lymphadenopathy, thyromegaly Respiratory exam: PRESENT: decreased breath sounds Cardiovascular exam: PRESENT: RRR. ABSENT: diastolic murmur, rubs, systolic murmur GI/Abdominal exam: PRESENT: normal bowel sounds, soft. ABSENT: distended, guarding, mass, organolmegaly, rebound, tenderness Rectal exam: PRESENT: deferred Extremities exam: PRESENT: full ROM. ABSENT: calf tenderness, clubbing, pedal edema Neurological exam: PRESENT: alert, awake, oriented to person, oriented to place, oriented to time, oriented to situation, CN II-XII grossly intact. ABSENT: motor sensory deficit Psychiatric exam: PRESENT: appropriate affect, normal mood. ABSENT: homicidal ideation, suicidal ideation Results Laboratory Results: 03/30/19 02:45 03/30/19 02:45 03/30/19 03/30/19 03/30/19 02:45 02:45 06:28 WBC 4.3 RBC 5.31 Hgb 16.2 Hct 48.4 MCV 91 MCH 30.5 MCHC 33.5 RDW 15.1 H Plt Count 195 Seg Neutrophils % 29.6 L Lymphocytes % 49.2 H Monocytes % 15.9 H Eosinophils % 4.3 Basophils % 1.0 Absolute Neutrophils 1.3 L Absolute Lymphocytes 2.1 Absolute Monocytes 0.7 Absolute Eosinophils 0.2 Absolute Basophils 0.0 Sodium 142.7 Potassium 4.0 Chloride 104 Carbon Dioxide 29 Anion Gap 10 BUN 21 H Creatinine 1.27 H Est GFR ( Amer) > 60 Est GFR (Non-Af Amer) 58 L Glucose 96 Calcium 10.3 H Total Bilirubin 0.4 AST 43 ALT 34 Alkaline Phosphatase 78 Total Protein 8.9 H Albumin 4.1 Urine Color YELLOW Urine Appearance CLEAR Urine pH 5.0 Ur Specific Watkins 1.024 Urine Protein NEGATIVE Urine Glucose (UA) NEGATIVE Urine Ketones NEGATIVE Urine Blood NEGATIVE Urine Nitrite NEGATIVE Ur Leukocyte Esterase NEGATIVE Urine WBC (Auto) 1 Urine RBC (Auto) 1 03/30/19 03/30/19 02:45 02:45 Creatine Kinase 65 CK-MB (CK-2) 0.30 Troponin I 0.024 Impressions: Chest X-Ray 03/30/19 03:05 IMPRESSION: Stable chest copyright 2011 [employer]- All Rights Reserved Assessment and Plan - Diagnosis (1) Chest pain Qualifiers: Chest pain type: unspecified Qualified Code(s): R07.9 - Chest pain, unspecified Is this a current diagnosis for this admission?: Yes Plan: Patient's chest pain will be evaluated with serial cardiac enzymes and he will be scheduled for a cardiac stress test using Cardiolite imaging. Patient's chest pain will be controlled utilizing morphine sulfate 2 to 4 mg IV every 2 hours as needed on a sliding scale basis. A recheck CBC, basic metabolic profile and magnesium level will be performed tomorrow morning. 03/30/[id number]-tche-old male admitted for chest pain. Scheduled for stress test tomorrow. IV morphine as needed for chest pains. Initial troponin is 0.0234. EKG shows T wave inversions. It can be due to LVH and uncontrolled hypertension. Patient is chest pain-free now. Second troponin is pending. Patient is asymptomatic right now. Presently on aspirin, atorvastatin, Arixtra. Lipid panel was requested for tomorrow. On oxygen 2 L nasal cannula and also on IV morphine for pain. (2) Abnormal EKG Is this a current diagnosis for this admission?: Yes Plan: 03/30/2019-EKG shows sinus rhythm with lateral leads show some T wave inversions. It can be due to LV strain or it can be due to myocardial ischemia. Initial troponin is slightly elevated. Patient creatinine is 1.27. And is chest pain- free now. Plan is to closely monitor the EKG and cardiac enzymes. (3) Hypertension Qualifiers: Hypertension type: essential hypertension Qualified Code(s): I10 - Essential (primary) hypertension Is this a current diagnosis for this admission?: Yes Plan: Patient's blood pressure will be monitored along with the rest of his vital signs throughout his hospital course. Introduction of antihypertensive agents will be after evaluation and his cardiac stress test is been completed. In the meantime patient's high blood pressure will be controlled utilizing hydralazine 20 mg IV every 4 hours as needed for systolic pressure greater than 160 or diastolic pressure greater than 100. 03/29/2019-initial blood pressure is 154/116 latest blood pressure is 115/80 on amlodipine 10 mg p.o. daily, he is on hydralazine IV PRN basis. He says he takes 2 blood pressure medications and Lasix at home ,does not know the names and requested the pharmacy to verify the medications from [employer] [facility]. (4) Tobacco use disorder, severe, dependence Is this a current diagnosis for this admission?: Yes Plan: Tobacco use cessation is advised and counseled briefly. A nicotine patch will be available for the patient's use if desired. A UA and a urine drug screen w ill also be obtained. 03/30/[id number]-jqds-old male came to the emergency with chest pain. Is a chronic smoker. Smoking counseling was provided. To place him on nicotine patch. Urine drug screen came back negative. - Time Time Spent with patient: 15-24 minutes Smoking Cessation Education: over 10 minutes Medications reviewed and adjusted accordingly: Yes Anticipated discharge: Home
[2019-03-30] MEDS: FONDAPARINUX SODIUM INJ 2.5 MG/0.5 ML DISP.SYRIN SUBCUT SCH (08:37)
[2019-03-30] MEDS: AMLODIPINE BESYLATE 10 MG TABLET PO SCH (08:37)
[2019-03-30 09:47] LABS: CREATINE KINASE MB 0.35 ng/mL (<4.55); TROPONIN I 0.028 ng/mL
[2019-03-30] MEDS: FAMOTIDINE 20 MG TABLET PO SCH ×2 (11:16→21:58)
[2019-03-30] MEDS: DOCUSATE SODIUM 100 MG CAPSULE PO SCH ×2 (11:16→17:42)
[2019-03-30 15:42] LABS: CREATINE KINASE MB 0.3 ng/mL (<4.55); TROPONIN I 0.026 ng/mL
[2019-03-30 21:02] LABS: TROPONIN I 0.033 ng/mL
[2019-03-30 21:04] LABS: CREATINE KINASE MB 0.39 ng/mL (<4.55)
[2019-03-30] MEDS ORDERED: ATORVASTATIN CALCIUM 10 MG TABLET PO SCH (22:00)
--- NOTE | 2019-03-30 22:38 | EKG REPORT ---
SEVERITY:- ABNORMAL ECG - SINUS RHYTHM PROBABLE LEFT ATRIAL ABNORMALITY LVH WITH SECONDARY REPOLARIZATION ABNORMALITY PROBABLE INFERIOR INFARCT, AGE INDETERMINATE LATERAL LEADS ARE ALSO INVOLVED : Confirmed by: Jae Solorzano 30-Mar-2019 22:37:54
[2019-03-31 05:05] LABS: ABSOLUTE EOSINOPHILS # (AUTO) 0.2 10^3/uL (0.0-0.6); ABSOLUTE LYMPHOCYTES (AUTO) 1.7 10^3/uL (0.5-4.7); ABSOLUTE MONOCYTES (AUTO) 0.7 10^3/uL (0.1-1.4); ABSOLUTE NEUT (AUTO) 1.1 10^3/uL (1.7-8.2); BASOPHILS % (AUTO) 1.2 % (0-2); EOSINOPHILS % (AUTO) 5.9 % (0-6); HEMATOCRIT 47.7 % (37.9-51.0); HEMOGLOBIN 16.1 g/dL (13.5-17.0); LYMPHOCYTES % (AUTO) 45.2 % (13-45); MEAN CORPUSCULAR HEMOGLOBIN 30.5 pg (27.0-33.4); MEAN CORPUSCULAR HGB CONC 33.9 g/dL (32.0-36.0); MEAN CORPUSCULAR VOLUME 90 fl (80-97); MONOCYTES % (AUTO) 17.7 % (3-13); PLATELET COUNT 168 10^3/uL (150-450); RED CELL DISTRIBUTION WIDTH 15.5 % (11.5-14.0); TOTAL CELLS COUNTED % (AUTO) 100 %; WHITE BLOOD COUNT 3.8 10^3/uL (4.0-10.5)
[2019-03-31 05:20] LABS: ANION GAP 12 (5-19); BLOOD UREA NITROGEN 20 mg/dL (7-20); CALCIUM 9.5 mg/dL (8.4-10.2); CARBON DIOXIDE 23 mmol/L (22-30); CHLORIDE 107 mmol/L (98-107); CHOLESTEROL 255.94 mg/dL (0-200); GLUCOSE 95 mg/dL (75-110); POTASSIUM 3.6 mmol/L (3.6-5.0); SODIUM 142.3 mmol/L (137-145); TRIGLYCERIDES 134 mg/dL (<150)
[2019-03-31 05:29] LABS: FREE T3 4.14 pg/mL (2.77-5.27); FREE T4 (FREE THYROXINE) 0.91 ng/dL (0.78-2.19)
[2019-03-31 05:31] LABS: DIRECT LDL 163 mg/dL (<100)
[2019-03-31 05:42] LABS: THYROID STIMULATING HORMONE 1.98 uIU/mL (0.47-4.68)
[2019-03-31] MEDS: FAMOTIDINE 20 MG TABLET PO SCH ×2 (11:26→22:11)
[2019-03-31] MEDS: AMLODIPINE BESYLATE 10 MG TABLET PO SCH (11:27)
[2019-03-31] MEDS: DOCUSATE SODIUM 100 MG CAPSULE PO SCH ×2 (11:27→17:20)
[2019-03-31] MEDS: FONDAPARINUX SODIUM INJ 2.5 MG/0.5 ML DISP.SYRIN SUBCUT SCH (11:31)
[2019-03-31] MEDS ORDERED: FONDAPARINUX SODIUM INJ 2.5 MG/0.5 ML DISP.SYRIN SUBCUT ONE (12:00)
[2019-03-31] MEDS ORDERED: REGADENOSON INJ 0.4 MG/5 ML DISP.SYRIN IV ONE (12:28)
[2019-03-31] MEDS: ACETAMINOPHEN 325 MG TABLET PO PRN ×2 (13:49→20:41)
--- NOTE | 2019-03-31 15:47 | PDOC PROGRESS REPORT ---
Subjective Progress Note for:: 03/31/19 Subjective:: This is 58 years old black male patient was past medical history of hypertension, hyperlipidemia, smoker presented with chief complaint of chest pain. His troponins are mildly elevated. Since patient has multiple risk factors he is admitted for observation. He has cardiac stress test this morning. Dr. Inman verbally communicated with me that patient has ejection fraction ranging between 14 to 18%. He states that the patient needs echocardiogram and probably has to wear LifeVest. Currently patient is chest pain-free. Reason For Visit: CHEST PAIN Physical Exam Vital Signs: Temp Pulse Resp BP Pulse Ox 97.3 F 98 16 168/90 H 100 03/31/19 12:00 03/31/19 12:00 03/31/19 12:00 03/31/19 12:00 03/31/19 12:00 Intake & Output 03/30/19 03/31/19 04/01/19 06:59 06:59 06:59 Intake Total 490 Balance 490 Weight 72.1 kg 73.8 kg General appearance: PRESENT: no acute distress Head exam: PRESENT: atraumatic Eye exam: PRESENT: conjunctival injection Neck exam: ABSENT: carotid bruit, JVD, lymphadenopathy, thyromegaly Respiratory exam: PRESENT: clear to auscultation chas. ABSENT: rales, rhonchi, wheezes Cardiovascular exam: PRESENT: RRR. ABSENT: diastolic murmur, rubs, systolic murmur GI/Abdominal exam: PRESENT: normal bowel sounds, soft. ABSENT: distended, guarding, mass, organolmegaly, rebound, tenderness Neurological exam: PRESENT: alert, awake, oriented to time, oriented to situation Results Laboratory Results: 03/31/19 03:48 03/31/19 03:48 03/31/19 03/31/19 03/31/19 03:48 03:48 03:48 WBC 3.8 L RBC 5.30 Hgb 16.1 Hct 47.7 MCV 90 MCH 30.5 MCHC 33.9 RDW 15.5 H Plt Count 168 Seg Neutrophils % 30.0 L Lymphocytes % 45.2 H Monocytes % 17.7 H Eosinophils % 5.9 Basophils % 1.2 Absolute Neutrophils 1.1 L Absolute Lymphocytes 1.7 Absolute Monocytes 0.7 Absolute Eosinophils 0.2 Absolute Basophils 0.0 Sodium 142.3 Potassium 3.6 Chloride 107 Carbon Dioxide 23 Anion Gap 12 BUN 20 Creatinine 1.19 Est GFR ( Amer) > 60 Est GFR (Non-Af Amer) > 60 Glucose 95 Calcium 9.5 Magnesium 1.6 Triglycerides 134 Cholesterol 255.94 H LDL Cholesterol Direct 163 H VLDL Cholesterol 27.0 HDL Cholesterol 46 TSH 1.98 Free T4 0.91 Free T3 pg/mL 4.14 03/30/19 03/30/19 03/30/19 02:45 02:45 08:48 Creatine Kinase 65 61 CK-MB (CK-2) 0.30 Troponin I 0.024 03/30/19 03/30/19 03/30/19 08:48 14:50 14:50 Creatine Kinase 58 CK-MB (CK-2) 0.35 0.30 Troponin I 0.028 0.026 03/30/19 03/30/19 03/30/19 14:50 14:50 20:25 Creatine Kinase Cancelled 55 CK-MB (CK-2) Cancelled Troponin I Cancelled 03/30/19 20:25 Creatine Kinase CK-MB (CK-2) 0.39 Troponin I 0.033 Impressions: Chest X-Ray 03/30/19 03:05 IMPRESSION: Stable chest copyright 2011 [employer]- All Rights Reserved Assessment and Plan - Diagnosis (1) Chest pain Qualifiers: Chest pain type: other chest pain Qualified Code(s): R07.89 - Other chest pain; R07.8 - Other chest pain Is this a current diagnosis for this admission?: Yes Plan: Nuclear cardiac stress test is negative for reversible ischemia. (2) CAD and possible ischemic cardiomyopathy Is this a current diagnosis for this admission?: Yes Plan: Ejection fraction ranges between 14 to 18%. Patient scheduled for echocardiogram tomorrow and possible LifeVest placement. Patient has been started on lisinopril and metoprolol succinate. (3) Hyperlipidemia Qualifiers: Hyperlipidemia type: unspecified Qualified Code(s): E78.5 - Hyperlipidemia, unspecified Is this a current diagnosis for this admission?: Yes Plan: Patient has been started on Lipitor (4) Hypertension Qualifiers: Hypertension type: essential hypertension Qualified Code(s): I10 - Essential (primary) hypertension Is this a current diagnosis for this admission?: Yes Plan: Continue current regimen (5) Tobacco use disorder Is this a current diagnosis for this admission?: Yes Plan: Patient counseled and encouraged to quit smoking.
--- NOTE | 2019-03-31 20:28 | XCELERA REPORT ---
[address] [address] Transthoracic Echocardiogram Report Name: JOSH GONZALEZ Age: 58 yrs Gender: Male : 1960 Patient Status: Inpatient Patient Location: [address] [place], [place] [address] Study Date: 03/31/2019 06:31 PM Height: 69 in Weight: 162 lb BSA: 1.9 m2 Procedure: A two-dimensional transthoracic echocardiogram with color flow Doppler was performed. Study Quality: Good. Reason For Study: To evaluate left ventricular function test History: CHEST PAIN / CARDIOMYOPATHY. Ordering Physician: DIANA AGUILAR Performed By: Letitia Farmer Interpretation Summary The left ventricle is moderately to severly dilated. There is normal left ventricular wall thickness. LV EF is 15% Left ventricular systolic function is severely reduced. Doppler measurements suggest impaired left ventricular relaxation, which is associated with grade I/IV or mild diastolic dysfunction The inferior wall is severlely hypokinetic to akinetic.THe LV apex is also severely hypokinetic to akinetic.Camnnot exclude a mural non mobile clots in the LV apex of small sizes adharent to the LV apex.. No ASD,VSD or PFO seen. The right ventricle is normal size. The right ventricular systolic function is normal. There is mild right ventricular hypertrophy. The right atrium is normal. The left atrial size is normal. There is no evidence of mitral valve prolapse. There is no vegetation seen on the mitral valve. There is no mitral valve stenosis. There is a trace amount of mitral regurgitation There is no aortic valvular vegetation. There is no aortic valve stenosis There is aortic sclerosis without aortic stenosis. There is no LVOT obstruction. There is a trace amount of aortic regurgitation There is no tricuspid stenosis. There is a trace amount of tricuspid regurgitation Right ventricular systolic pressure is normal. RVSP is 10 to 15 mm of Hg , with a RA mean of 5 to 10. There is no pulmonic valvular stenosis. There is a trace amount of pulmonic regurgitation The aortic root is normal size. The inferior vena cava appeared normal and decreased > 50% with respiration (RAP 5-10 mmHg) There is no pericardial effusion. MMode/2D Measurements & Calculations RVDd: 2.1 cm LVIDd: 7.1 cm FS: 7.7 % Ao root diam: 3.0 cm IVSd: 0.80 cm LVIDs: 6.6 cm EDV(Teich): LVPWd: 1.0 cm 263.7 ml Ao root area: ESV(Teich): 6.9 cm2 219.9 ml LA dimension: EF(Teich): 16.6 % 3.3 cm LVLd ap4: 8.4 cm SV(MOD-sp4): EDV(MOD-sp4): 48.0 ml 150.0 ml LVLs ap4: 7.7 cm ESV(MOD-sp4): 102.0 ml EF(MOD-sp4): 32.0 % Doppler Measurements & Calculations MV E max kerline: MV P1/2t max kerline: Ao V2 max: LV V1 max P.4 cm/sec 83.5 cm/sec 126.4 cm/sec 2.2 mmHg MV A max kerline: MV P1/2t: 67.1 msec Ao max PG: LV V1 max: 103.7 cm/sec MVA(P1/2t): 3.3 cm2 6.4 mmHg 73.5 cm/sec MV E/A: 0.83 MV dec slope: 364.4 cm/sec2 MV dec time: 0.17 sec TV V2 max: PA V2 max: PI end-d kerline: MV P1/2t-pr_phl: 107.2 cm/sec 93.7 cm/sec 99.8 cm/sec 67.1 msec TV max P.6 mmHgPA max P.5 mmHg Left Ventricle The left ventricle is moderately to severly dilated. There is normal left ventricular wall thickness. LV EF is 15%. Left ventricular systolic function is severely reduced. Doppler measurements suggest impaired left ventricular relaxation, which is associated with grade I/IV or mild diastolic dysfunction. The inferior wall is severlely hypokinetic to akinetic.THe LV apex is also severely hypokinetic to akinetic.Camnnot exclude a mural non mobile clots in the LV apex of small sizes adharent to the LV apex.. No ASD,VSD or PFO seen. Right Ventricle The right ventricle is normal size. There is mild right ventricular hypertrophy. The right ventricular systolic function is normal. Atria The right atrium is normal. The left atrial size is normal. Mitral Valve There is mild mitral annular calcification. There is no evidence of mitral valve prolapse. There is no vegetation seen on the mitral valve. There is no mitral valve stenosis. There is a trace amount of mitral regurgitation. Aortic Valve There is no aortic valvular vegetation. There is no aortic valve stenosis. There is aortic sclerosis without aortic stenosis. There is no LVOT obstruction. There is a trace amount of aortic regurgitation. Tricuspid Valve There is no tricuspid stenosis. There is a trace amount of tricuspid regurgitation. Right ventricular systolic pressure is normal. RVSP is 10 to 15 mm of Hg , with a RA mean of 5 to 10. Pulmonic Valve There is no pulmonic valvular stenosis. There is a trace amount of pulmonic regurgitation. Great Vessels The aortic root is normal size. The inferior vena cava appeared normal and decreased > 50% with respiration (RAP 5-10 mmHg). Effusions There is no pericardial effusion. : DIANA AGUILAR > Rola Inman
[2019-03-31] MEDS: METOPROLOL SUCCINATE 25 MG TAB.SR.24H PO SCH (22:11)
[2019-03-31] MEDS: ATORVASTATIN CALCIUM 20 MG TABLET PO SCH (22:11)
[2019-04-01] MEDS: FONDAPARINUX SODIUM INJ 2.5 MG/0.5 ML DISP.SYRIN SUBCUT SCH (09:52)
[2019-04-01] MEDS: AMLODIPINE BESYLATE 10 MG TABLET PO SCH (09:53)
[2019-04-01] MEDS: FAMOTIDINE 20 MG TABLET PO SCH ×2 (09:53→21:18)
[2019-04-01] MEDS: DOCUSATE SODIUM 100 MG CAPSULE PO SCH ×2 (09:53→17:10)
[2019-04-01] MEDS: METOPROLOL SUCCINATE 25 MG TAB.SR.24H PO SCH ×2 (09:54→21:23)
[2019-04-01] MEDS ORDERED: LISINOPRIL 10 MG TABLET PO SCH (10:00)
[2019-04-01] MEDS: HYDRALAZINE HCL 50 MG TABLET PO SCH ×2 (14:16→21:22)
--- NOTE | 2019-04-01 15:29 | PDOC PROGRESS REPORT ---
Subjective Progress Note for:: 04/01/19 Subjective:: I seen patient resting in bed. He is awake alert oriented. He is not in pain or distress. Yesterday he had an echo which revealed left ventricular ejection fraction of 15% and his left ventricular systolic function is severely reduced. The inferior wall is severely hypokinetic to a kinetic. The left episodes of severely hypokinetic to a kinetic. And Dr. Inman also suggested that he cannot rule out or exclude a neural minimal while thrombus in the left apex. Patient has been started on warfarin. Since patient is at risk for sudden cardiac he needs a LifeVest. Reason For Visit: CHEST PAIN Physical Exam Vital Signs: Temp Pulse Resp BP Pulse Ox 98.2 F 84 20 127/75 H 100 04/01/19 12:00 04/01/19 14:00 04/01/19 12:00 04/01/19 12:00 04/01/19 12:00 Intake & Output 03/31/19 04/01/19 04/02/19 06:59 06:59 06:59 Intake Total 490 3082 711 Balance 490 3082 711 Weight 73.8 kg 75.9 kg General appearance: PRESENT: no acute distress, well-developed, well-nourished Head exam: PRESENT: atraumatic, normocephalic Eye exam: PRESENT: conjunctiva pink, EOMI, PERRLA. ABSENT: scleral icterus Ear exam: PRESENT: normal external ear exam Mouth exam: PRESENT: moist, tongue midline Neck exam: ABSENT: carotid bruit, JVD, lymphadenopathy, thyromegaly Respiratory exam: PRESENT: clear to auscultation chas. ABSENT: rales, rhonchi, wheezes Cardiovascular exam: PRESENT: RRR. ABSENT: diastolic murmur, rubs, systolic murmur Pulses: PRESENT: normal dorsalis pedis pul Vascular exam: PRESENT: normal capillary refill GI/Abdominal exam: PRESENT: normal bowel sounds, soft. ABSENT: distended, guarding, mass, organolmegaly, rebound, tenderness Rectal exam: PRESENT: deferred Extremities exam: PRESENT: full ROM. ABSENT: calf tenderness, clubbing, pedal edema Neurological exam: PRESENT: alert, awake, oriented to person, oriented to place, oriented to time, oriented to situation, CN II-XII grossly intact. ABSENT: motor sensory deficit Psychiatric exam: PRESENT: appropriate affect, normal mood. ABSENT: homicidal ideation, suicidal ideation Skin exam: PRESENT: dry, intact, warm. ABSENT: cyanosis, rash Results Laboratory Results: 03/31/19 03:48 03/31/19 03:48 03/30/19 03/30/19 03/30/19 02:45 02:45 08:48 Creatine Kinase 65 61 CK-MB (CK-2) 0.30 Troponin I 0.024 03/30/19 03/30/19 03/30/19 08:48 14:50 14:50 Creatine Kinase 58 CK-MB (CK-2) 0.35 0.30 Troponin I 0.028 0.026 03/30/19 03/30/19 03/30/19 14:50 14:50 20:25 Creatine Kinase Cancelled 55 CK-MB (CK-2) Cancelled Troponin I Cancelled 03/30/19 20:25 Creatine Kinase CK-MB (CK-2) 0.39 Troponin I 0.033 Impressions: Chest X-Ray 03/30/19 03:05 IMPRESSION: Stable chest copyright 2011 [employer]- All Rights Reserved Assessment and Plan - Diagnosis (1) Chest pain Qualifiers: Chest pain type: other chest pain Qualified Code(s): R07.89 - Other chest pain; R07.8 - Other chest pain Is this a current diagnosis for this admission?: Yes Plan: Nuclear cardiac stress test is negative for reversible ischemia. (2) CAD and possible ischemic cardiomyopathy Is this a current diagnosis for this admission?: Yes Plan: Ejection fraction ranges between 14 to 18%. His echocardiogram also shows ejection fraction of 50%. Patient is at risk of sudden cardiac this so he needs LifeVest placement. Patient scheduled for echocardiogram tomorrow and possible LifeVest placement. Patient has been started on lisinopril and metoprolol succinate. (3) Hyperlipidemia Qualifiers: Hyperlipidemia type: unspecified Qualified Code(s): E78.5 - Hyperlipidemia, unspecified Is this a current diagnosis for this admission?: Yes Plan: Patient has been started on Lipitor (4) Hypertension Qualifiers: Hypertension type: essential hypertension Qualified Code(s): I10 - Essential (primary) hypertension Is this a current diagnosis for this admission?: Yes Plan: Continue current regimen (5) Tobacco use disorder Is this a current diagnosis for this admission?: Yes Plan: Patient counseled and encouraged to quit smoking.
[2019-04-01] MEDS: ATORVASTATIN CALCIUM 20 MG TABLET PO SCH (21:18)
[2019-04-01] MEDS: LISINOPRIL 10 MG TABLET PO SCH (21:19)
[2019-04-01] MEDS ORDERED: WARFARIN SODIUM 5 MG TABLET PO SCH (22:00)
--- NOTE | 2019-04-01 22:40 | PDOC CONSULTATION ---
Consultation-Blank Consultation: Past Medical History Cardiac Medical History: Reports: Hyperlipidema, Hypertension Denies: Atrial Fibrillation, DVT, Myocardial Infarction, Pulmonary Embolism Pulmonary Medical History: Reports: Bronchitis, Other - Frequent episodes of dyspnea lasting for 1 to 2 minutes Denies: Asthma, Chronic Obstructive Pulmonary Disease (COPD) EENT Medical History: Reports: Eyes - Prescription eye glasses Denies: Cataracts, Ears - Hearing aids Neurological Medical History: Denies: Hemorrhagic CVA, Ischemic CVA, Seizures Endocrine Medical History: Denies: Diabetes Mellitus Type 1, Diabetes Mellitus Type 2, Hyperthyroidism, Hypothyroidism Renal/ Medical History: Denies: Chronic Kidney Disease, Nephrolithiasis Malignancy Medical History: Reports: None GI Medical History: Denies: Cirrhosis, Hepatitis Musculoskeltal Medical History: Denies: Arthritis, Gout Skin Medical History: Denies: Eczema, Psoriasis Psychiatric Medical History: Reports: Tobacco Dependency Denies: Alcohol Dependency, Substance Abuse Traumatic Medical History: Reports: None Hematology: Denies: Anemia, Bleeding Tendencies Infectious Medical History: Reports: None Past Surgical History Past Surgical History: Reports: Other - Throat surgery, vasectomy Social History Information Source: Patient Lives with: Spouse/Significant other Smoking Status: Current Every Day Smoker Cigars Per Day: 4 - Inhales Frequency of Alcohol Use: Social - Drinks on weekends consuming approximately 1/5 of hard liquor over a 3 days of the weekend with one sixpack of beer also consumed. 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 Hx Recreational Drug Use: No Drugs: None Hx Prescription Drug Abuse: No - Advance Directive Resuscitation Status: Full Code Surrogate healthcare decision maker:: Oriana Magallon Family History Family History: CAD, DM, Hyperlipidemia, Hypertension, Other - Renal failure. denies: Malignancy Parental Family History Reviewed: Yes Children Family History Reviewed: No Sibling(s) Family History Reviewed.: Yes Medication/Allergy Home Medications: Prednisone [Deltasone 20 mg Tablet] 2 tab PO BID #16 tablet 06/20/17 Allergies/Adverse Reactions: No Known Allergies Allergy (Unverified 06/20/17 10:08) Review of Systems Constitutional: ABSENT: chills, fever(s) Eyes: ABSENT: visual disturbances, other - Eye pain Ears: ABSENT: hearing changes, other - Ear pain Nose, Mouth, and Throat: ABSENT: mouth pain, sore throat Cardiovascular: PRESENT: as per HPI, chest pain, dyspnea on exertion - 1 to 2- minute episodes occurring about once an hour during the day every day for quite some time, palpitations - 3 days ago. ABSENT: edema, orthropnea Respiratory: PRESENT: as per HPI, dyspnea - 1 to 2-minute episodes occurring about once an hour during the day every day for quite some time. ABSENT: cough Gastrointestinal: ABSENT: abdominal pain, constipation, diarrhea, nausea, vomiting Genitourinary: ABSENT: dysuria, hematuria Musculoskeletal: ABSENT: back pain, joint swelling, muscle weakness Integumentary: ABSENT: pruritus, rash Neurological: ABSENT: confusion, convulsions, focal weakness, memory loss, syncope Psychiatric: ABSENT: anxiety, depression Endocrine: ABSENT: cold intolerance, heat intolerance Hematologic/Lymphatic: ABSENT: easy bleeding, easy bruising
[2019-04-02] MEDS: HYDRALAZINE HCL 50 MG TABLET PO SCH (06:16)
[2019-04-02] MEDS: FONDAPARINUX SODIUM INJ 2.5 MG/0.5 ML DISP.SYRIN SUBCUT SCH (09:22)
[2019-04-02] MEDS: AMLODIPINE BESYLATE 10 MG TABLET PO SCH (09:22)
[2019-04-02] MEDS: DOCUSATE SODIUM 100 MG CAPSULE PO SCH (09:22)
[2019-04-02] MEDS: LISINOPRIL 10 MG TABLET PO SCH (09:22)
[2019-04-02] MEDS: FAMOTIDINE 20 MG TABLET PO SCH (09:23)
[2019-04-02] MEDS: METOPROLOL SUCCINATE 25 MG TAB.SR.24H PO SCH (09:23)
--- NOTE | 2019-04-02 10:05 | PDOC DISCHARGE SUMMARY ---
General - Admit/Disc Date/PCP Admission Date/Primary Care Provider: 03/30/19 05:23 Discharge Date: 04/02/19 - Discharge Diagnosis (1) Chest pain Is this a current diagnosis for this admission?: Yes (2) CAD and possible ischemic cardiomyopathy Is this a current diagnosis for this admission?: Yes (3) Hyperlipidemia Is this a current diagnosis for this admission?: Yes (4) Hypertension Is this a current diagnosis for this admission?: Yes (5) Tobacco use disorder Is this a current diagnosis for this admission?: Yes - Additional Information Resuscitation Status: Full Code Home Medications: Furosemide [Lasix 40 mg Tablet] 40 mg PO QAM 03/30/19 Lisinopril [Prinivil 2.5 mg Tablet] 2.5 mg PO DAILY 03/30/19 Potassium Chloride [Klor-Con M10] 10 meq PO DAILY 03/30/19 History of Present Illness History of Present Illness: JOSH GONZALEZ is a 58 year old male who presented via EMS to the emergency room with an acute history of chest pain. He admits to sudden onset of a moderate, continuous, unchanging dull pain in his left chest just above his left nipple with radiation to his left anterior shoulder lasting for approximately 1 hour prior to arrival of EMS and receiving a dose of nitroglycerin and an aspirin. The pain was accompanied by minimal dyspnea lasting for 1 to 2 minutes, however the patient complains of the same short lived minimal dyspneic episodes occurring about 1/h throughout the day without regard to rest or activity. He denies prior similar episodes of chest pain but has chronic recurrent dyspnea as previously described and was recently seen for a episode of palpitations with tachycardia. His pain responded immediately to treatment with 1 sublingual nitroglycerin in the ambulance and 324 mg of aspirin (treated). In the ER he was found to have a mildly elevated troponin level which was actually lower than the level he had on his visit 3 days earlier. Because of the patient's chest pain lasting for an hour he was admitted observation status for serial cardiac enzymes and a cardiac stress test. Hospital Course Hospital Course: This is 58 years old black male patient was past medical history of hypertension, hyperlipidemia, smoker presented with chief complaint of chest pain. His troponins are mildly elevated. Since patient has multiple risk factors he is admitted for observation. He has cardiac stress test this morning. Dr. Inman verbally communicated with me that patient has ejection fraction ranging between 14 to 18%. His echocardiogram reported as left ventricular ejection fraction of 15%. Left ventricular systolic function is severely reduced. Inferior wall is severely hypokinetic to a kinetic. The left ventricular apex is also severely hypokinetic to a kinetic. Dr. Inman also comments that he cannot exclude a mural and mobile thrombus in the left ventricle apex. And patient has been started on Coumadin. Since patient is at risk for sudden cardiac , will try to get for him a LifeVest but we are not successful. Patient is going to be followed by Dr. Inman so he will try to get him a LifeVest if possible. Patient is a meantime is going to be treated cardioprotective medications lisinopril 20 mg p.o. daily, carvedilol 25 mg twice daily and for possible left apex mural thrombus he will be on Coumadin. Physical Exam Vital Signs: Temp Pulse Resp BP Pulse Ox 97.9 F 88 16 130/89 H 97 04/02/19 08:00 04/02/19 08:00 04/02/19 08:00 04/02/19 08:00 04/02/19 08:00 Intake & Output 04/01/19 04/02/19 04/03/19 06:59 06:59 06:59 Intake Total 3082 1664 Balance 3082 1664 Weight 75.9 kg 75.9 kg General appearance: PRESENT: no acute distress, well-developed, well-nourished Head exam: PRESENT: atraumatic, normocephalic Eye exam: PRESENT: conjunctiva pink, EOMI, PERRLA. ABSENT: scleral icterus Ear exam: PRESENT: normal external ear exam Mouth exam: PRESENT: moist, tongue midline Neck exam: ABSENT: carotid bruit, JVD, lymphadenopathy, thyromegaly Respiratory exam: PRESENT: clear to auscultation chas. ABSENT: rales, rhonchi, wheezes Cardiovascular exam: PRESENT: RRR. ABSENT: diastolic murmur, rubs, systolic murmur Pulses: PRESENT: normal dorsalis pedis pul Vascular exam: PRESENT: normal capillary refill GI/Abdominal exam: PRESENT: normal bowel sounds, soft. ABSENT: distended, guarding, mass, organolmegaly, rebound, tenderness Rectal exam: PRESENT: deferred Extremities exam: PRESENT: full ROM. ABSENT: calf tenderness, clubbing, pedal edema Neurological exam: PRESENT: alert, awake, oriented to person, oriented to place, oriented to time, oriented to situation, CN II-XII grossly intact. ABSENT: motor sensory deficit Psychiatric exam: PRESENT: appropriate affect, normal mood. ABSENT: homicidal ideation, suicidal ideation Skin exam: PRESENT: dry, intact, warm. ABSENT: cyanosis, rash Results Laboratory Results: 03/31/19 03:48 03/31/19 03:48 03/30/19 03/30/19 03/30/19 02:45 02:45 08:48 Creatine Kinase 65 61 CK-MB (CK-2) 0.30 Troponin I 0.024 03/30/19 03/30/19 03/30/19 08:48 14:50 14:50 Creatine Kinase 58 CK-MB (CK-2) 0.35 0.30 Troponin I 0.028 0.026 03/30/19 03/30/19 03/30/19 14:50 14:50 20:25 Creatine Kinase Cancelled 55 CK-MB (CK-2) Cancelled Troponin I Cancelled 03/30/19 20:25 Creatine Kinase CK-MB (CK-2) 0.39 Troponin I 0.033 Impressions: Chest X-Ray 03/30/19 03:05 IMPRESSION: Stable chest copyright 2011 [employer]- All Rights Reserved Qualifiers - * PATIENT BEING DISCHARGED WITH ANY OF THE FOLLOWING DIAGNOSIS: No Acute Heart Failure Is this a Heart Failure Patient?: No
[2019-04-02 13:51] VITALS: BP 123/78
--- NOTE | 2019-04-07 20:37 | DRAGON STRESS TEST REPORT ---
Intravenous Lexiscan Cardiolite stress test using single photon emmision computerized tomography. Date of procedure: 03/31/2019. Ordering Provider: Dr. Kaiden Ogden. Patient's status: NCAT patient Indication: Chest pain, and abnormal EKG.. Coronary risk factors: Age, hypertension, dyslipidemia, tobacco abuse disorder, and family history of coronary artery disease Resting EKG: Sinus Rhythm. LVH with strain pattern. T inversion in the inferior leads and lateral leads and leads V4 consistent with ischemia. Stress EKG:[ No changes of ischemia. The patient had no chest pain or discomfort, and there were no arrhythmias seen Reason for termination: Protocol. Conclusions: Normal EKG and hemodynamic response to IV Lexiscan. Nuclear data: At rest the patient was given 11.82 millicuries of technetium 99m sestamibi injected intravenously. As per protocol rest non gated SPECT images were obtained. Subsequently the patient was given intravenous Lexiscan at a dose of 0.4 mg in 5 mL intravenously, followed by flush with normal saline. Subsequently the stress dose of 33.6 millicuries of technetium 99m sestamibi was injected intravenously. As per protocol stress gated images were obtained. Nuclear interpretation: Review of images showed that there is a perfusion defect involving the inferior wall and f the left ventricular apex in both the rest and stress images. This inferior wall and small area of the apex had decreased motion contraction and thickening by gated study consistent with old myocardial infarction. The rest of the segments of the myocardium had normal perfusion at rest, and normal perfusion post stress with IV Lexiscan. All segments of the myocardium had normal thickening by gated study. T. I D. ratio was normal at 1.07. There was no transient ischemic dilatation of the left ventricle. The left ventricle was significantly dilated with severely reduced LV ejection fraction consistent with combination of ischemic and dilated cardiomyopathy. Computer read rest, and stress left ventricular ejection fraction were 18 %, and 14 %, respectively. Conclusion: 1. There is no scintigraphic evidence of Lexiscan induced myocardial ischemia. 2. There is scintigraphic evidence of myocardial infarction/scar involving the inferior wall and the left ventricular apex. 3. Dilated left ventricle with severely reduced LV ejection fraction consistent with a combination of ischemic and dilated cardiomyopathy Recommendations: 1. Aggressive treatment of coronary artery disease and cardiomyopathy. With a combination of beta-blockers RICHARDSON inhibitors or ARB's, aspirin statins and nitrates if no contraindication 2. Aggressive risk factor modification, and treating the underlying co- morbidities. 3. Check echo for LV ejection fraction correlation. The above has been discussed with the hospitalist physician taking care of the patient on the day of the stress test procedure performance. LEILA
== END 2019-04-02 15:09 | disposition home or self-care (01) ==
LOC: ER 02:57 → INTOOBSV 05:23 → EH 05:23 → 4N 15:23
PROVIDERS: ADMIT Emergency Medicine; ATTEND Emergency Medicine
PROC: HZ31ZZZ Individual Counseling for Substance Abuse Treatment, Behavioral (ICD-10-PCS; principal; 2019-03-30)
DX: R07.89 Other chest pain (principal); I25.10 Atherosclerotic heart disease of native coronary artery without angina pectoris; E78.5 Hyperlipidemia, unspecified; R06.09 Other forms of dyspnea; I11.0 Hypertensive heart disease with heart failure; I50.9 Heart failure, unspecified; R79.89 Other specified abnormal findings of blood chemistry; F17.210 Nicotine dependence, cigarettes, uncomplicated; R94.31 Abnormal electrocardiogram [ECG] [EKG]; Z79.899 Other long term (current) drug therapy; Z82.49 Family history of ischemic heart disease and other diseases of the circulatory system
CPT/HCPCS: 99285; 36415 ×2; 84439; 82553; 82550; 83735; 84443; 85025 ×2; 85610; 80048; 80053; 81001; 84484; 80307; 84481; 80061; 93306; 93017; 71045; 78452; 93005; 93010; 99406; G0378 ×5; A9500; J2785; J0360; J1652 ×2; J3490 ×3; Q9969

== ENCOUNTER → 2019-04-04 | Outpatient (CLI) | payer SELFPAY ==
[2019-04-04 11:41] LABS: PROTHROMBIN TIME 14.8 SEC (11.4-15.4)
== END ==
LOC: OD 11:05
PROVIDERS: ATTEND Internal Medicine
DX: Z51.81 Encounter for therapeutic drug level monitoring (principal); Z79.01 Long term (current) use of anticoagulants
CPT/HCPCS: 36415; 85610

== ENCOUNTER 2019-04-18 10:45 | Emergency (ER) | payer SELFPAY ==
--- NOTE | 2019-04-18 10:57 | ER Document Report ---
ED Medical Screen (RME) - General Chief Complaint: Abnormal Lab Results Stated Complaint: ABNORMAL LABS Primary Care Provider: DIANA AGUILAR MD [Primary Care Provider] - Follow up as needed TRAVEL OUTSIDE OF THE [place] IN LAST 30 DAYS: No - HPI Notes: 04/18/19 10:55 Patient is a 58-year-old male who presents to the emergency department for evaluation after being told by Dr. Inman to come to the hospital for something about "labs." Patient is overall not sure why he is coming to the emergency department otherwise. He does not have any verbal orders and I did not receive a phone call prior. I did try to call him and we left him a VM. He is feeling well and is eating/drinking without difficulty. No bleeding or development of swelling. Patient was admitted to the hospital earlier this month and was found to have an ejection fraction of 15%. It appears that they did try to get him a LifeVest but were unsuccessful here in the hospital. He has been following up with Dr. Inman since then and has been placed on Coumadin. Denies BRADLEY, fever, neck pain, URI, CP, SOB, Abd pain, or rash. I have treated and performed a rapid initial assessment of this patient. A comprehensive ED assessment and evaluation of the patient, analysis of test results and completion of medical decision making process will be conducted by additional ED providers. PHYSICAL EXAMINATION: GENERAL: Well-appearing, well-nourished and in no acute distress. A&Ox4. Answers questions appropriately. LUNGS: Breath sounds clear to auscultation bilaterally and equal. No wheezes rales or rhonchi. HEART: Regular rate and rhythm Extremities: No cyanosis, clubbing, or edema b/l. - Related Data Allergies/Adverse Reactions: No Known Allergies Allergy (Unverified 06/20/17 10:08) Past Medical History - Past Medical History Cardiac Medical History: Reports: Hx Hypercholesterolemia, Hx Hypertension Denies: Hx Atrial Fibrillation, Hx DVT, Hx Heart Attack, Hx Pulmonary Embolism Pulmonary Medical History: Reports: Hx Bronchitis Denies: Hx Asthma, Hx COPD Neurological Medical History: Denies: Hx Seizures Endocrine Medical History: Denies: Hx Diabetes Mellitus Type 1, Hx Diabetes Mellitus Type 2, Hx Hyperthyroidism, Hx Hypothyroidism Renal/ Medical History: Denies: Hx Peritoneal Dialysis GI Medical History: Denies: Hx Cirrhosis, Hx Hepatitis Musculoskeltal Medical History: Denies Hx Arthritis, Denies Hx Gout Skin Medical History: Denies Hx Eczema, Denies Hx Psoriasis Infectious Medical History: Denies: Hx Hepatitis Past Surgical History: Reports: Other - Throat surgery, vasectomy - Immunizations Hx Diphtheria, Pertussis, Tetanus Vaccination: Yes Physical Exam - Vital signs Vitals: Temp Pulse Resp BP Pulse Ox 97.9 F 84 18 107/76 98 04/18/19 10:56 04/18/19 10:56 04/18/19 10:56 04/18/19 10:56 04/18/19 10:56 Course - Vital Signs Vital signs: Temp Pulse Resp BP Pulse Ox 97.9 F 84 18 107/76 98 04/18/19 10:56 04/18/19 10:56 04/18/19 10:56 04/18/19 10:56 04/18/19 10:56 Doctor's Discharge - Discharge Referrals: DIANA AGUILAR MD [Primary Care Provider] - Follow up as needed
[2019-04-18 11:33] LABS: HEMATOCRIT 47.6 % (37.9-51.0); MEAN CORPUSCULAR HEMOGLOBIN 29.9 pg (27.0-33.4); MEAN CORPUSCULAR HGB CONC 33.5 g/dL (32.0-36.0); MEAN CORPUSCULAR VOLUME 89 fl (80-97); PLATELET COUNT 182 10^3/uL (150-450); RED BLOOD COUNT 5.34 10^6/uL (4.35-5.55); RED CELL DISTRIBUTION WIDTH 14.2 % (11.5-14.0); WHITE BLOOD COUNT 3.8 10^3/uL (4.0-10.5)
[2019-04-18 11:37] LABS: INTERNATIONAL RATION (INR) 1.36; PROTHROMBIN TIME 17.5 SEC (11.4-15.4)
[2019-04-18 11:38] LABS: PARTIAL THROMBOPLASTIN TIME 33.9 SEC (23.5-35.8)
[2019-04-18 11:49] LABS: ALANINE AMINOTRANSFERASE 31 U/L (21-72); ALBUMIN 4.4 g/dL (3.5-5.0); ALKALINE PHOSPHATASE 69 U/L (38-126); ANION GAP 10 (5-19); ASPARTATE AMINO TRANSFERASE 33 U/L (17-59); BILIRUBIN,DIRECT 0.3 mg/dL (0.0-0.4); BILIRUBIN,TOTAL 0.3 mg/dL (0.2-1.3); BLOOD UREA NITROGEN 27 mg/dL (7-20); CALCIUM 9.9 mg/dL (8.4-10.2); CARBON DIOXIDE 26 mmol/L (22-30); CHLORIDE 106 mmol/L (98-107); GLUCOSE 92 mg/dL (75-110); POTASSIUM 4.4 mmol/L (3.6-5.0); SODIUM 141.8 mmol/L (137-145); TOTAL PROTEIN 9.3 g/dL (6.3-8.2)
[2019-04-18 11:59] LABS: ABSOLUTE LYMPHOCYTES# (MANUAL) 1.7 10^3/uL (0.5-4.7); ABSOLUTE MONOCYTES # (MANUAL) 0.5 10^3/uL (0.1-1.4); ABSOLUTE NEUTROPHILS# (MANUAL) 1.2 10^3/uL (1.7-8.2); BAND NEUTROPHILS % (MANUAL) 1 % (3-5); BASOPHILS % (MANUAL) 1 % (0-2); EOSINOPHILS % (MANUAL) 9 % (0-6); LYMPHOCYTES % (MANUAL) 42 % (13-45); MONOCYTES % (MANUAL) 12 % (3-13); PLATELET COMMENT ADEQUATE; RBC MORPHOLOGY COMMENT NORMO-CYTIC/CHROMIC; SEGMENTED NEUTROPHILS % (MAN) 31 % (42-78); TOTAL CELLS COUNTED 100
--- NOTE | 2019-04-18 12:23 | ER Document Report ---
ED General - General Chief Complaint: Abnormal Lab Results Stated Complaint: ABNORMAL LABS Time Seen by Provider: 04/18/19 12:12 Primary Care Provider: DIANA AGUILAR MD [Primary Care Provider] - Follow up as needed Notes: 58-year-old male. Sent for outpatient labs and ended up in the ER somehow. Patient denies any emergency medical condition. His labs were drawn however and resulted. The visit was generated prior to the physician having the chart. TRAVEL OUTSIDE OF THE [place] IN LAST 30 DAYS: No - HPI Onset: Just prior to arrival - Related Data Allergies/Adverse Reactions: No Known Allergies Allergy (Unverified 06/20/17 10:08) Past Medical History - General Information source: Patient - Social History Smoking Status: Unknown if Ever Smoked Family History: Reviewed & Not Pertinent Patient has suicidal ideation: No Patient has homicidal ideation: No - Past Medical History Cardiac Medical History: Reports: Hx Hypercholesterolemia, Hx Hypertension Denies: Hx Atrial Fibrillation, Hx DVT, Hx Heart Attack, Hx Pulmonary Embolism Pulmonary Medical History: Reports: Hx Bronchitis Denies: Hx Asthma, Hx COPD Neurological Medical History: Denies: Hx Seizures Endocrine Medical History: Denies: Hx Diabetes Mellitus Type 1, Hx Diabetes Mellitus Type 2, Hx Hyperthyroidism, Hx Hypothyroidism Renal/ Medical History: Denies: Hx Peritoneal Dialysis GI Medical History: Denies: Hx Cirrhosis, Hx Hepatitis Musculoskeletal Medical History: Denies Hx Arthritis, Denies Hx Gout Skin Medical History: Denies Hx Eczema, Denies Hx Psoriasis Infectious Medical History: Denies: Hx Hepatitis Past Surgical History: Reports: Other - Throat surgery, vasectomy - Immunizations Hx Diphtheria, Pertussis, Tetanus Vaccination: Yes Review of Systems - Review of Systems Constitutional: denies: Malaise, Weakness Cardiovascular: denies: Chest pain, Palpitations Respiratory: denies: Cough, Short of breath Physical Exam - Vital signs Vitals: Temp Pulse Resp BP Pulse Ox 97.9 F 84 18 107/76 98 04/18/19 10:56 04/18/19 10:56 04/18/19 10:56 04/18/19 10:56 04/18/19 10:56 Interpretation: Normal - General General appearance: Appears well, Alert - Cardiovascular Rhythm: Regular Murmur: No - Neurological Cognition: Normal Orientation: AAOx4 - Psychological Associated symptoms: Normal affect, Normal mood Course - Re-evaluation Re-evalutation: 04/18/19 12:19 Laboratory 04/18/19 04/18/19 04/18/19 11:15 11:15 11:15 WBC 3.8 L RBC 5.34 Hgb 16.0 Hct 47.6 MCV 89 MCH 29.9 MCHC 33.5 RDW 14.2 H Plt Count 182 Total Counted 100 Seg Neutrophils % Not Reportable Seg Neuts % (Manual) 31 L Band Neutrophils % 1 L Lymphocytes % Not Reportable Lymphocytes % (Manual) 42 Atypical Lymphs % 4 Monocytes % Not Reportable Monocytes % (Manual) 12 Eosinophils % Not Reportable Eosinophils % (Manual) 9 H Basophils % Not Reportable Basophils % (Manual) 1 Absolute Neutrophils Not Reportable Abs Neuts (Manual) 1.2 L Absolute Lymphocytes Not Reportable Abs Lymphs (Manual) 1.7 Absolute Monocytes Not Reportable Abs Monocytes (Manual) 0.5 Absolute Eosinophils Not Reportable Absolute Eos (Manual) 0.3 Absolute Basophils Not Reportable Abs Basophils (Manual) 0.0 Platelet Comment ADEQUATE RBC Morph Comment NORMO-CYTIC/CHROMIC PT 17.5 H INR 1.36 APTT 33.9 Sodium 141.8 Potassium 4.4 Chloride 106 Carbon Dioxide 26 Anion Gap 10 BUN 27 H Creatinine 1.64 H Est GFR ( Amer) 52 L Est GFR (Non-Af Amer) 43 L Glucose 92 Calcium 9.9 Total Bilirubin 0.3 Direct Bilirubin 0.3 Neonat Total Bilirubin Not Reportable Neonat Direct Bilirubin Not Reportable Neonat Indirect Bili Not Reportable AST 33 ALT 31 Alkaline Phosphatase 69 NT-Pro-B Natriuret Pep Total Protein 9.3 H Albumin 4.4 04/18/19 11:15 WBC RBC Hgb Hct MCV MCH MCHC RDW Plt Count Total Counted Seg Neutrophils % Seg Neuts % (Manual) Band Neutrophils % Lymphocytes % Lymphocytes % (Manual) Atypical Lymphs % Monocytes % Monocytes % (Manual) Eosinophils % Eosinophils % (Manual) Basophils % Basophils % (Manual) Absolute Neutrophils Abs Neuts (Manual) Absolute Lymphocytes Abs Lymphs (Manual) Absolute Monocytes Abs Monocytes (Manual) Absolute Eosinophils Absolute Eos (Manual) Absolute Basophils Abs Basophils (Manual) Platelet Comment RBC Morph Comment PT INR APTT Sodium Potassium Chloride Carbon Dioxide Anion Gap BUN Creatinine Est GFR ( Amer) Est GFR (Non-Af Amer) Glucose Calcium Total Bilirubin Direct Bilirubin Neonat Total Bilirubin Neonat Direct Bilirubin Neonat Indirect Bili AST ALT Alkaline Phosphatase NT-Pro-B Natriuret Pep 292 Total Protein Albumin Labs were printed out for the patient. Please note that this patient was briefly seen by a mid-level provider at front and these orders were placed. This physician technically did not need to see this patient as he had no emergency medical complaint but he mistakenly checked into the ER thinking that this was going to be where he needed labs done. It would be customary and appropriate to wave the physician charges for this particular visit. Please keep that in consideration when reviewing this chart. - Vital Signs Vital signs: Temp Pulse Resp BP Pulse Ox 97.9 F 84 18 107/76 98 04/18/19 10:56 04/18/19 10:56 04/18/19 10:56 04/18/19 10:56 04/18/19 10:56 - Laboratory Result Diagrams: 04/18/19 11:15 04/18/19 11:15 Laboratory results interpreted by me: 04/18/19 04/18/19 04/18/19 11:15 11:15 11:15 WBC 3.8 L RDW 14.2 H Seg Neuts % (Manual) 31 L Band Neutrophils % 1 L Eosinophils % (Manual) 9 H Abs Neuts (Manual) 1.2 L PT 17.5 H BUN 27 H Creatinine 1.64 H Est GFR ( Amer) 52 L Est GFR (Non-Af Amer) 43 L Total Protein 9.3 H Discharge - Discharge Clinical Impression: Routine lab draw Condition: Good Disposition: HOME, SELF-CARE Instructions: Blood Test Information ([facility]) Referrals: DIANA AGUILAR MD [Primary Care Provider] - Follow up as needed
[2019-04-18 12:36] VITALS: BP 110/88
== END 2019-04-18 12:34 | disposition home or self-care (01) ==
LOC: ER 10:45
DX: Z00.00 Encounter for general adult medical examination without abnormal findings (principal)
CPT/HCPCS: 36415; 80053; 83880; 85025; 85610; 85730; 99283

== ENCOUNTER → 2019-06-02 | Outpatient (CLI) | payer SELFPAY ==
[2019-06-02 13:22] LABS: INTERNATIONAL RATION (INR) 1.02; PROTHROMBIN TIME 13.4 SEC (11.4-15.4)
== END ==
LOC: OD 12:31
PROVIDERS: ATTEND Specialist
DX: I10 Essential (primary) hypertension (principal); I42.0 Dilated cardiomyopathy; I25.10 Atherosclerotic heart disease of native coronary artery without angina pectoris; F17.210 Nicotine dependence, cigarettes, uncomplicated; Z79.899 Other long term (current) drug therapy
CPT/HCPCS: 36415; 85610

== ENCOUNTER 2019-06-13 02:58 | Inpatient (IN) | payer SELFPAY ==
--- NOTE | 2019-06-13 03:29 | ER Document Report ---
ED General - General Chief Complaint: Shortness Of Breath Stated Complaint: SOB Time Seen by Provider: 06/13/19 03:28 Primary Care Provider: CECILY SANCHEZ MD [Primary Care Provider] - Follow up as needed Notes: Patient is a pleasant 58-year-old male presents with complaint of some chest tightness as well as some difficulty breathing came on suddenly tonight. He denies any pain into his abdomen. No fevers. No infection. He has a history of congestive heart failure with a known ejection fraction that is very low based on his previous stress test done here in March. He is followed by Dr. Gilbert is his assistant broker. His primary care doctor is in [place]. Patient says that the symptoms seem to come and go. He is still feels more short of breath and usually does but currently his shortness of breath and chest tightness as high as it was earlier when he first came in. He does take warfarin. He also takes carvedilol. He is to take lisinopril but says that was stopped 3 weeks ago because he was causing a cough. TRAVEL OUTSIDE OF THE [place] IN LAST 30 DAYS: No - Related Data Allergies/Adverse Reactions: No Known Allergies Allergy (Unverified 06/20/17 10:08) Past Medical History - Social History Smoking Status: Current Every Day Smoker Frequency of alcohol use: None Drug Abuse: None Family History: Reviewed & Not Pertinent - Past Medical History Cardiac Medical History: Reports: Hx Hypercholesterolemia, Hx Hypertension Denies: Hx Atrial Fibrillation, Hx DVT, Hx Heart Attack, Hx Pulmonary Embolism Pulmonary Medical History: Reports: Hx Bronchitis Denies: Hx Asthma, Hx COPD Neurological Medical History: Denies: Hx Seizures Endocrine Medical History: Denies: Hx Diabetes Mellitus Type 1, Hx Diabetes Mellitus Type 2, Hx Hyperthyroidism, Hx Hypothyroidism Renal/ Medical History: Denies: Hx Peritoneal Dialysis GI Medical History: Denies: Hx Cirrhosis, Hx Hepatitis Musculoskeletal Medical History: Denies Hx Arthritis, Denies Hx Gout Skin Medical History: Denies Hx Eczema, Denies Hx Psoriasis Infectious Medical History: Denies: Hx Hepatitis Past Surgical History: Reports: Other - Throat surgery, vasectomy - Immunizations Hx Diphtheria, Pertussis, Tetanus Vaccination: Yes Review of Systems - Review of Systems Notes: My Normal Review Basic REVIEW OF SYSTEMS: CONSTITUTIONAL : Denies fever, chills, or sweats. Denies recent illness. EENT: Denies eye, ear, throat, or mouth pain or symptoms. Denies nasal or sinus congestion. CARDIOVASCULAR: Chest tightness RESPIRATORY: Difficulty breathing GASTROINTESTINAL: Denies abdominal pain. Denies nausea, vomiting, or diarrhea. GENITOURINARY: Denies difficulty urinating, painful urination, burning, frequency, or blood in urine. FEMALE GENITOURINARY: Denies vaginal bleeding, abnormal or irregular periods. LMP: MUSCULOSKELETAL: Denies neck or back pain or joint pain or swelling. SKIN: Denies rash or skin lesions. HEMATOLOGIC : On Coumadin NEUROLOGICAL: Denies altered mental status or loss of consciousness. Denies headache. Denies weakness or paralysis or loss of use of either side. Denies problems with gait or speech. Denies sensory or motor loss. ALL OTHER SYSTEMS REVIEWED AND NEGATIVE. Physical Exam - Vital signs Vitals: Temp Pulse Resp BP Pulse Ox 97.9 F 109 H 26 H 152/115 H 97 06/13/19 03:03 06/13/19 03:03 06/13/19 03:03 06/13/19 03:03 06/13/19 03:03 - Notes Notes: General Appearance: Well nourished, alert, cooperative, no acute distress, no obvious discomfort. Vitals: reviewed, See vital signs table. Head: no swelling or tenderness to the head Eyes: PERRL, EOMI, Conjuctiva clear Mouth: No decreasd moisture Neck: Supple, no neck tenderness, No thyromegaly Lungs: No wheezing, basilar rales, No rhonci, No accessory muscle use, good air exchange bilaterally. Heart: Cardiac rate, Regular rythm, No murmur, no rub Abdomen: Normal BS, soft, No rigidity, No abdominal tenderness, No guarding, no rebound, no abdominal masses, no organomegaly Extremities: strength 5/5 in all extremities, good pulses in all extremities, no swelling or tenderness in the extremities, no edema. Skin: warm, dry, appropriate color, no rash Neuro: speech clear, oriented x 3, normal affect, responds appropriately to questions. Course - Vital Signs Vital signs: Temp Pulse Resp BP Pulse Ox 97.9 F 109 H 20 147/119 H 95 06/13/19 03:03 06/13/19 03:03 06/13/19 04:03 06/13/19 04:03 06/13/19 04:03 - Laboratory Result Diagrams: 06/13/19 03:54 06/13/19 03:54 Laboratory results interpreted by me: 06/13/19 06/13/19 06/13/19 03:54 03:54 03:54 RDW 14.6 H PT 15.5 H Chloride 108 H BUN 21 H Creatinine 1.26 H Est GFR (Non-Af Amer) 59 L Total Protein 9.0 H - EKG Interpretation by Me Additional EKG results interpreted by me: 06/13/19 03:28 EKG is reviewed and interpreted by me. EKG shows sinus tachycardia with a rate of 107 bpm. Patient does have mild as she is segment elevation in lead aVR and mild ST segment depression lateral precordial leads but this is unchanged comparison to his previous EKG from March 30, 2019. No acute changes on his current EKG. ND interval within normal range. QRS duration and QTc intervals are prolonged. Discharge - Discharge Clinical Impression: Pulmonary edema Qualifiers: Chronicity: acute Qualified Code(s): J81.0 - Acute pulmonary edema Dyspnea Qualifiers: Dyspnea type: unspecified Qualified Code(s): R06.00 - Dyspnea, unspecified Condition: Stable Disposition: ADMITTED OBSERVATION Admitting Provider: Horacio (Hospitalist) Unit Admitted: IMCU Referrals: CECILY SANCHEZ MD [Primary Care Provider] - Follow up as needed
[2019-06-13] MEDS ORDERED: NITROGLYCERIN 2% OINTMENT 1 GM PACKET TP ONE (03:37)
--- NOTE | 2019-06-13 03:37 | ER Document Report ---
ED General - General Chief Complaint: Shortness Of Breath Stated Complaint: SOB Time Seen by Provider: 06/13/19 03:28 Primary Care Provider: CECILY SANCHEZ MD [Primary Care Provider] - Follow up as needed TRAVEL OUTSIDE OF THE [place] IN LAST 30 DAYS: No - Related Data Allergies/Adverse Reactions: No Known Allergies Allergy (Unverified 06/20/17 10:08) Past Medical History - Social History Family History: Reviewed & Not Pertinent - Past Medical History Cardiac Medical History: Reports: Hx Hypercholesterolemia, Hx Hypertension Denies: Hx Atrial Fibrillation, Hx DVT, Hx Heart Attack, Hx Pulmonary Embolism Pulmonary Medical History: Reports: Hx Bronchitis Denies: Hx Asthma, Hx COPD Neurological Medical History: Denies: Hx Seizures Endocrine Medical History: Denies: Hx Diabetes Mellitus Type 1, Hx Diabetes Mellitus Type 2, Hx Hyperthyroidism, Hx Hypothyroidism Renal/ Medical History: Denies: Hx Peritoneal Dialysis GI Medical History: Denies: Hx Cirrhosis, Hx Hepatitis Musculoskeletal Medical History: Denies Hx Arthritis, Denies Hx Gout Skin Medical History: Denies Hx Eczema, Denies Hx Psoriasis Infectious Medical History: Denies: Hx Hepatitis Past Surgical History: Reports: Other - Throat surgery, vasectomy - Immunizations Hx Diphtheria, Pertussis, Tetanus Vaccination: Yes Physical Exam - Vital signs Vitals: Temp Pulse Resp BP Pulse Ox 97.9 F 109 H 26 H 152/115 H 97 06/13/19 03:03 06/13/19 03:03 06/13/19 03:03 06/13/19 03:03 06/13/19 03:03 Course - Vital Signs Vital signs: Temp Pulse Resp BP Pulse Ox 97.9 F 109 H 26 H 152/115 H 97 06/13/19 03:03 06/13/19 03:03 06/13/19 03:03 06/13/19 03:03 06/13/19 03:03 Discharge - Discharge Referrals: CECILY SANCHEZ MD [Primary Care Provider] - Follow up as needed
[2019-06-13 04:06] LABS: ABSOLUTE EOSINOPHILS # (AUTO) 0.2 10^3/uL (0.0-0.6); ABSOLUTE LYMPHOCYTES (AUTO) 2.4 10^3/uL (0.5-4.7); ABSOLUTE MONOCYTES (AUTO) 0.4 10^3/uL (0.1-1.4); ABSOLUTE NEUT (AUTO) 2.5 10^3/uL (1.7-8.2); BASOPHILS % (AUTO) 0.8 % (0-2); EOSINOPHILS % (AUTO) 3.8 % (0-6); HEMATOCRIT 46.9 % (37.9-51.0); LYMPHOCYTES % (AUTO) 43.4 % (13-45); MEAN CORPUSCULAR HEMOGLOBIN 30.4 pg (27.0-33.4); MEAN CORPUSCULAR HGB CONC 34.1 g/dL (32.0-36.0); MEAN CORPUSCULAR VOLUME 89 fl (80-97); MONOCYTES % (AUTO) 7.6 % (3-13); PLATELET COUNT 212 10^3/uL (150-450); RED BLOOD COUNT 5.26 10^6/uL (4.35-5.55); RED CELL DISTRIBUTION WIDTH 14.6 % (11.5-14.0); SEGMENTED NEUTROPHILS % (AUTO) 44.4 % (42-78); TOTAL CELLS COUNTED % (AUTO) 100 %; WHITE BLOOD COUNT 5.6 10^3/uL (4.0-10.5)
[2019-06-13 04:11] LABS: INTERNATIONAL RATION (INR) 1.22; PROTHROMBIN TIME 15.5 SEC (11.4-15.4)
[2019-06-13 04:39] LABS: ALANINE AMINOTRANSFERASE 26 U/L (21-72); ALBUMIN 4.2 g/dL (3.5-5.0); ALKALINE PHOSPHATASE 85 U/L (38-126); ANION GAP 8 (5-19); ASPARTATE AMINO TRANSFERASE 31 U/L (17-59); BILIRUBIN,DIRECT 0.3 mg/dL (0.0-0.4); BILIRUBIN,TOTAL 0.5 mg/dL (0.2-1.3); BLOOD UREA NITROGEN 21 mg/dL (7-20); CALCIUM 9.6 mg/dL (8.4-10.2); CARBON DIOXIDE 25 mmol/L (22-30); CHLORIDE 108 mmol/L (98-107); GLUCOSE 108 mg/dL (75-110); POTASSIUM 3.8 mmol/L (3.6-5.0)
[2019-06-13 04:45] LABS: TROPONIN I 0.025 ng/mL
--- NOTE | 2019-06-13 05:05 | RADIOLOGY REPORT (SQ) ---
EXAM DESCRIPTION: XR CHEST 1 VIEW COMPLETED DATE/TME: 06/13/2019 03:36 CLINICAL HISTORY: 58 years, Male, difficulty breahting, chest tightness COMPARISON: 03/30/2019 NUMBER OF VIEWS: One TECHNIQUE: AP view the chest LIMITATIONS: None. FINDINGS: There is increased interstitial opacities along the right perihilar region. The heart is enlarged. There is no pneumothorax or pleural effusion. The bones are unremarkable. IMPRESSION: Development of right perihilar interstitial opacities, which may represent pneumonia or asymmetric pulmonary edema. copyright 2010 [email or web address]- All Rights Reserved
[2019-06-13] MEDS ORDERED: FUROSEMIDE INJ/PF 20 MG/2 ML SDV IV ONE (05:14)
[2019-06-13] MEDS ORDERED: MAG HYDROX/AL HYDROX/SIMETH SUSP 30 ML UDCUP PO PRN (05:31)
[2019-06-13] MEDS ORDERED: ACETAMINOPHEN 325 MG TABLET PO PRN (05:31)
[2019-06-13] MEDS ORDERED: ENALAPRILAT DIHYDRATE INJ/PF 1.25 MG/1 ML SDV IV ONE (05:33)
[2019-06-13] MEDS ORDERED: HYDRALAZINE HCL INJ/PF 20 MG/1 ML SDV IV PRN (05:35)
[2019-06-13] MEDS ORDERED: SPIRONOLACTONE 25 MG TABLET PO ONE (06:15)
[2019-06-13] MEDS ORDERED: NITROGLYCERIN 10 MG (0.4 MG/HR) PATCH.TD24 TD ONE (06:15)
[2019-06-13] MEDS ORDERED: FUROSEMIDE INJ/PF 40 MG/4 ML SDV IV ONE (06:15)
--- NOTE | 2019-06-13 06:32 | PDOC H&P ---
History of Present Illness Admission Date/PCP: 06/13/19 06:18 CECILY SANCHEZ MD Patient complains of: Shortness of breath History of Present Illness: JOSH GONZALEZ is a 58 year old male With a partial past medical history of hypertension, chronic bronchitis, coronary artery disease, dyslipidemia, tobacco dependence and congestive heart failure with an ejection fraction of 15% diagnosed February 2019. He presents with 3 days of shortness of breath and nonp roductive cough prompting evaluation emergency room where he is found to have uncontrolled hypertension, tachycardia, massive cardiomegaly, pulmonary edema. He started on Lasix and referred to the hospitalist for admission. Patient states he is unaware of the fluid restriction and has felt thirsty and subsequently been drinking as much as he can. He denies chest pain nausea vomiting. Past Medical History Cardiac Medical History: Reports: Congestive Heart Failure - Ejection fraction 15%, Hyperlipidema, Hypertension Denies: Atrial Fibrillation, DVT, Myocardial Infarction, Pulmonary Embolism Pulmonary Medical History: Reports: Bronchitis Denies: Asthma, Chronic Obstructive Pulmonary Disease (COPD) Neurological Medical History: Denies: Seizures Endocrine Medical History: Denies: Diabetes Mellitus Type 1, Diabetes Mellitus Type 2, Hyperthyroidism, Hypothyroidism GI Medical History: Denies: Cirrhosis, Hepatitis Musculoskeltal Medical History: Denies: Arthritis, Gout Skin Medical History: Denies: Eczema, Psoriasis Hematology: Denies: Anemia, Bleeding Tendencies Past Surgical History Past Surgical History: Reports: Other - Throat surgery, vasectomy Social History Information Source: Patient Lives with: Spouse/Significant other Smoking Status: Current Every Day Smoker Frequency of Alcohol Use: Social - Drinks on weekends consuming approximately 1/5 of hard liquor over a 3 days of the weekend with one sixpack of beer also consumed. 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 Hx Recreational Drug Use: No Drugs: None Hx Prescription Drug Abuse: No - Advance Directive Resuscitation Status: Full Code Family History Family History: COPD, Hypertension Parental Family History Reviewed: Yes Children Family History Reviewed: Yes Sibling(s) Family History Reviewed.: Yes Medication/Allergy Home Medications: Furosemide [Lasix 40 mg Tablet] 40 mg PO QAM 03/30/19 Lisinopril [Prinivil 2.5 mg Tablet] 2.5 mg PO DAILY 03/30/19 Potassium Chloride [Klor-Con M10] 10 meq PO DAILY 03/30/19 Atorvastatin Calcium [Lipitor 20 mg Tablet] 40 mg PO QHS #60 tablet 04/02/19 Lisinopril [Prinivil 10 mg Tablet] 20 mg PO DAILY #60 tablet 04/02/19 Warfarin Sodium [Coumadin 5 mg Tablet] 5 mg PO QHS #30 tablet 04/02/19 Allergies/Adverse Reactions: No Known Allergies Allergy (Unverified 06/20/17 10:08) Review of Systems Constitutional: PRESENT: as per HPI, fatigue, weight gain. ABSENT: fever(s) Eyes: ABSENT: visual disturbances Ears: ABSENT: hearing changes Cardiovascular: PRESENT: as per HPI, dyspnea on exertion, orthropnea Respiratory: PRESENT: cough, dyspnea. ABSENT: hemoptysis, sputum, other Gastrointestinal: ABSENT: abdominal pain, constipation, diarrhea, hematemesis, hematochezia, nausea, vomiting Genitourinary: ABSENT: dysuria, hematuria Musculoskeletal: ABSENT: joint swelling Integumentary: ABSENT: rash, wounds Neurological: ABSENT: abnormal gait, abnormal speech, confusion, dizziness, focal weakness, syncope Psychiatric: ABSENT: anxiety, depression, homidical ideation, suicidal ideation Endocrine: ABSENT: cold intolerance, heat intolerance, polydipsia, polyuria Hematologic/Lymphatic: ABSENT: easy bleeding, easy bruising Physical Exam Vital Signs: Temp Pulse Resp BP Pulse Ox 97.9 F 109 H 20 147/119 H 95 06/13/19 03:03 06/13/19 03:03 06/13/19 04:03 06/13/19 04:03 06/13/19 04:03 Intake & Output 06/11/19 06/12/19 06/13/19 11:59 11:59 11:59 Weight 75.4 kg General appearance: PRESENT: cooperative, mild distress, thin. ABSENT: disheveled Head exam: PRESENT: atraumatic, normocephalic Eye exam: PRESENT: conjunctiva pink, EOMI, PERRLA. ABSENT: scleral icterus Ear exam: PRESENT: normal external ear exam Mouth exam: PRESENT: moist, tongue midline Neck exam: PRESENT: JVD. ABSENT: carotid bruit, lymphadenopathy, thyromegaly Respiratory exam: PRESENT: clear to auscultation chas, retraction, tachypnea. A BSENT: rales, rhonchi, wheezes Cardiovascular exam: PRESENT: gallop, RRR, +S1, +S2, tachycardia. ABSENT: diastolic murmur, rubs, systolic murmur Pulses: PRESENT: normal dorsalis pedis pul Vascular exam: PRESENT: normal capillary refill GI/Abdominal exam: PRESENT: normal bowel sounds, soft. ABSENT: distended, guarding, mass, organolmegaly, rebound, tenderness Rectal exam: PRESENT: deferred Extremities exam: PRESENT: full ROM. ABSENT: calf tenderness, clubbing, pedal edema Results Laboratory Results: 06/13/19 03:54 06/13/19 03:54 06/13/19 06/13/19 03:54 03:54 WBC 5.6 RBC 5.26 Hgb 16.0 Hct 46.9 MCV 89 MCH 30.4 MCHC 34.1 RDW 14.6 H Plt Count 212 Seg Neutrophils % 44.4 Lymphocytes % 43.4 Monocytes % 7.6 Eosinophils % 3.8 Basophils % 0.8 Absolute Neutrophils 2.5 Absolute Lymphocytes 2.4 Absolute Monocytes 0.4 Absolute Eosinophils 0.2 Absolute Basophils 0.0 Sodium 140.9 Potassium 3.8 Chloride 108 H Carbon Dioxide 25 Anion Gap 8 BUN 21 H Creatinine 1.26 H Est GFR ( Amer) > 60 Est GFR (Non-Af Amer) 59 L Glucose 108 Calcium 9.6 Total Bilirubin 0.5 AST 31 ALT 26 Alkaline Phosphatase 85 Total Protein 9.0 H Albumin 4.2 06/13/19 03:54 Troponin I 0.025 NT-Pro-B Natriuret Pep 543 Impressions: Chest X-Ray 06/13/19 03:36 IMPRESSION: Development of right perihilar interstitial opacities, which may represent pneumonia or asymmetric pulmonary edema. copyright 2010 [employer]- All Rights Reserved Assessment and Plan - Diagnosis (1) Congestive heart failure Is this a current diagnosis for this admission?: Yes Plan: IMCU admission, fluid restriction, optimize volume, blood pressure and heart rate. Extensive education required. Follow-up 2D echo as likely requires pacemaker defibrillator (2) Pulmonary edema Qualifiers: Chronicity: acute Qualified Code(s): J81.0 - Acute pulmonary edema Is this a current diagnosis for this admission?: Yes Plan: Secondary to uncontrolled hypertension, tachycardia and volume overload. (3) Hypertension Qualifiers: Hypertension type: essential hypertension Qualified Code(s): I10 - Essential (primary) hypertension Is this a current diagnosis for this admission?: Yes Plan: Optimize RICHARDSON inhibitor, Lasix, hydralazine and trial Aldactone - Time Time Spent with patient: 35 or more minutes - Inpatient Certification Medical Necessity: Need Close Monitoring Due to Risk of Patient Decompensation
[2019-06-13] MEDS: HEPARIN SOD (PORCINE) 5,000 UNIT/ML 1 ML VIAL SUBCUT SCH ×3 (07:19→21:46)
--- NOTE | 2019-06-13 08:30 | EKG REPORT ---
SEVERITY:- ABNORMAL ECG - SINUS TACHYCARDIA LEFT ATRIAL ABNORMALITY LVH WITH IVCD, LAD AND SECONDARY REPOL ABNRM PROBABLE INFERIOR INFARCT, OLD : Confirmed by: Kei Canales MD 13-Jun-2019 08:30:06
[2019-06-13] MEDS: POTASSIUM CHLORIDE 10 MEQ CAPSULE.ER PO SCH ×2 (10:24→21:45)
[2019-06-13] MEDS: LOSARTAN POTASSIUM 50 MG TABLET PO SCH ×2 (10:24→21:45)
[2019-06-13] MEDS: DOCUSATE SODIUM 100 MG CAPSULE PO SCH (10:25)
[2019-06-13] MEDS: ASPIRIN 81 MG TABLET, ENT COATED PO SCH (10:25)
[2019-06-13 11:52] LABS: CREATINE KINASE MB 0.78 ng/mL (<4.55); TROPONIN I 0.02 ng/mL
[2019-06-13] MEDS: CARVEDILOL 3.125 MG TABLET PO SCH ×2 (15:10→21:46)
[2019-06-13 16:54] LABS: CREATINE KINASE MB 0.56 ng/mL (<4.55); TROPONIN I 0.014 ng/mL
[2019-06-13] MEDS: FUROSEMIDE INJ/PF 40 MG/4 ML SDV IV SCH (19:17)
[2019-06-13] MEDS: SPIRONOLACTONE 25 MG TABLET PO SCH (21:45)
[2019-06-13] MEDS: NICOTINE 7 MG/24 HR PATCH.TD24 TD SCH (21:51)
[2019-06-13] MEDS ORDERED: ATORVASTATIN CALCIUM 20 MG TABLET PO SCH (22:00)
[2019-06-13 23:02] LABS: CREATINE KINASE MB 0.48 ng/mL (<4.55); TROPONIN I 0.014 ng/mL
[2019-06-14 05:52] LABS: CHOLESTEROL 201.18 mg/dL (0-200); TRIGLYCERIDES 112 mg/dL (<150)
[2019-06-14 06:03] LABS: DIRECT LDL 108 mg/dL (<100)
[2019-06-14] MEDS: HEPARIN SOD (PORCINE) 5,000 UNIT/ML 1 ML VIAL SUBCUT SCH (06:28)
[2019-06-14] MEDS: FUROSEMIDE INJ/PF 40 MG/4 ML SDV IV SCH (06:28)
[2019-06-14 07:47] LABS: ANION GAP 7 (5-19); BLOOD UREA NITROGEN 26 mg/dL (7-20); CALCIUM 9.2 mg/dL (8.4-10.2); CARBON DIOXIDE 25 mmol/L (22-30); CHLORIDE 109 mmol/L (98-107); GLUCOSE 97 mg/dL (75-110); POTASSIUM 4.1 mmol/L (3.6-5.0)
[2019-06-14] MEDS ORDERED: NITROGLYCERIN 10 MG (0.4 MG/HR) PATCH.TD24 TD SCH (10:00)
[2019-06-14] MEDS ORDERED: [UNRECOGNIZED DRUG - OTHER] PO SCH (10:00)
[2019-06-14] MEDS ORDERED: (PENDING PHARMACY ID) (Darunavir Ethanolate [Prezista] 800 MG) PO SCH (10:00)
[2019-06-14] MEDS: NICOTINE 7 MG/24 HR PATCH.TD24 TD SCH (10:22)
[2019-06-14] MEDS: ASPIRIN 81 MG TABLET, ENT COATED PO SCH (10:22)
[2019-06-14] MEDS: CARVEDILOL 3.125 MG TABLET PO SCH (10:22)
[2019-06-14] MEDS: LOSARTAN POTASSIUM 50 MG TABLET PO SCH (10:22)
[2019-06-14] MEDS: DOCUSATE SODIUM 100 MG CAPSULE PO SCH (10:22)
[2019-06-14] MEDS: SPIRONOLACTONE 25 MG TABLET PO SCH (10:23)
[2019-06-14] MEDS: POTASSIUM CHLORIDE 10 MEQ CAPSULE.ER PO SCH (10:23)
[2019-06-14 10:30] VITALS: BP 113/80
--- NOTE | 2019-06-15 17:17 | PDOC DISCHARGE SUMMARY ---
General - Admit/Disc Date/PCP Admission Date/Primary Care Provider: 06/13/19 06:41 CECILY SANCHEZ MD Discharge Date: 06/14/19 - Discharge Diagnosis (1) Congestive heart failure Is this a current diagnosis for this admission?: Yes (2) Hypertension Is this a current diagnosis for this admission?: Yes (3) Pulmonary edema Is this a current diagnosis for this admission?: Yes - Additional Information Resuscitation Status: Full Code Discharge Diet: Cardiac Discharge Activity: Activity As Tolerated Prescriptions: Furosemide [Lasix 20 mg Tablet] 20 mg PO BID 30 Days #60 tablet RX: Carvedilol [Coreg 3.125 mg Tablet] 6.25 mg PO Q12 30 Days #60 tablet RX: Spironolactone [Aldactone 25 mg Tablet] 25 mg PO Q12 30 Days #60 tablet Home Medications: RX: Lisinopril [Prinivil 2.5 mg Tablet] 2.5 mg PO DAILY 03/30/19 RX: Warfarin Sodium [Coumadin 5 mg Tablet] 5 mg PO QHS #30 tablet 04/02/19 RX: Aspirin [Ecotrin 81 mg EC Tablet] 81 mg PO DAILY 06/13/19 RX: Atorvastatin Calcium [Lipitor 20 mg Tablet] 20 mg PO QHS 06/13/19 RX: Darunavir Ethanolate [Prezista] 800 mg PO DAILY 06/13/19 RX: Elviteg/Cob/Emtri/Tenof Alafen [Genvoya Tablet] 1 tab PO DAILY 06/13/19 Furosemide [Lasix 20 mg Tablet] 20 mg PO BID 30 Days #60 tablet 06/14/19 RX: Carvedilol [Coreg 3.125 mg Tablet] 6.25 mg PO Q12 30 Days #60 tablet 06/14/19 RX: Spironolactone [Aldactone 25 mg Tablet] 25 mg PO Q12 30 Days #60 tablet 06/14/19 History of Present Illness History of Present Illness: JOSH GONZALEZ is a 58 year old male With a partial past medical history of hy pertension, chronic bronchitis, coronary artery disease, dyslipidemia, tobacco dependence and congestive heart failure with an ejection fraction of 15% diagnosed February 2019. He presents with 3 days of shortness of breath and nonproductive cough prompting evaluation emergency room where he is found to have uncontrolled hypertension, tachycardia, massive cardiomegaly, pulmonary edema. He started on Lasix and referred to the hospitalist for admission. Patient states he is unaware of the fluid restriction and has felt thirsty and subsequently been drinking as much as he can. He denies chest pain nausea vomiting. Hospital Course Hospital Course: (1) Congestive heart failure Acute on chronic systolic heart failure. 03/31/2019 2D echo LVEF 15%. Due to noncompliance. Patient had a stated he has been drinking too much water and did not know that he had to do volume restriction. Was admitted to [facility] admission, fluid restriction, RICHARDSON, beta-blockers, diuretics and Aldactone. Counseled and educated about CHF and volume restriction. Follow-up 2D echo as likely requires pacemaker defibrillator He sees Dr. Sanchez as an outpatient. An appointment was made for him to see Dr. Sanchez on 06/17/2019. Was discharged on RICHARDSON, beta-blockers and diuretics. Got a call from Dr. Sanchez his roof foreman who stated that patient could be discharged home and he will follow-up with him as outpatient. (2) Pulmonary edema Resolved. Secondary to uncontrolled hypertension, tachycardia and volume overload. Admitted to [facility]. SPO2 WNL on RA. Was admitted to [facility] admission, fluid restriction, optimize volume, blood pressure and heart rate. (3) Hypertension Optimsed. Discharged on RICHARDSON inhibitor, Lasix, hydralazine and Aldactone Physical Exam Vital Signs: Temp Pulse Resp BP Pulse Ox 97.9 F 87 16 113/80 98 06/14/19 10:27 06/14/19 10:27 06/14/19 10:27 06/14/19 10:27 06/14/19 10:27 Intake & Output 06/14/19 06/15/19 06/16/19 06:59 06:59 06:59 Intake Total 510 Balance 510 Weight 73.2 kg General appearance: PRESENT: no acute distress, well-developed, well-nourished Head exam: PRESENT: atraumatic, normocephalic Eye exam: PRESENT: conjunctiva pink, EOMI, PERRLA. ABSENT: scleral icterus Ear exam: PRESENT: normal external ear exam Mouth exam: PRESENT: moist, tongue midline Neck exam: ABSENT: carotid bruit, JVD, lymphadenopathy, thyromegaly Respiratory exam: PRESENT: clear to auscultation chas. ABSENT: rales, rhonchi, wheezes Cardiovascular exam: PRESENT: RRR. ABSENT: diastolic murmur, rubs, systolic murmur Pulses: PRESENT: normal dorsalis pedis pul Vascular exam: PRESENT: normal capillary refill GI/Abdominal exam: PRESENT: normal bowel sounds, soft. ABSENT: distended, guarding, mass, organolmegaly, rebound, tenderness Rectal exam: PRESENT: deferred Extremities exam: PRESENT: full ROM. ABSENT: calf tenderness, clubbing, pedal edema Neurological exam: PRESENT: alert, awake, oriented to person, oriented to place, oriented to time, oriented to situation, CN II-XII grossly intact. ABSENT: motor sensory deficit Psychiatric exam: PRESENT: appropriate affect, normal mood. ABSENT: homicidal ideation, suicidal ideation Skin exam: PRESENT: dry, intact, warm. ABSENT: cyanosis, rash Results Laboratory Results: 06/13/19 03:54 06/14/19 05:19 06/13/19 06/13/19 06/13/19 03:54 03:54 10:43 Creatine Kinase 119 CK-MB (CK-2) 0.78 Troponin I 0.025 0.020 NT-Pro-B Natriuret Pep 543 06/13/19 06/13/19 06/13/19 10:43 16:11 16:11 Creatine Kinase 101 99 CK-MB (CK-2) 0.56 Troponin I 0.014 NT-Pro-B Natriuret Pep 06/13/19 22:04 Creatine Kinase CK-MB (CK-2) 0.48 Troponin I 0.014 NT-Pro-B Natriuret Pep Impressions: Chest X-Ray 06/13/19 03:36 IMPRESSION: Development of right perihilar interstitial opacities, which may represent pneumonia or asymmetric pulmonary edema. copyright 2010 [employer]- All Rights Reserved Qualifiers - * PATIENT BEING DISCHARGED WITH ANY OF THE FOLLOWING DIAGNOSIS: No Acute Heart Failure - Is this a Heart Failure Patient?: Yes Documentation of LVEF assessment?: Yes LVEF < 40%?: Yes-if yes answer questions a through e a) Discharged on ACEI?: Yes b) Discharges on ARB?: N/A-Discharged on ARNI c) Discharged on ARNI?: Yes d) Discharged on evidence-based Beta mundo(carvedilol, sustained release metoprolol succinate, or bisoprolol)?: Yes e) For LVEF <35%, discharged on Aldosterone antagonist?: Yes 3. Anticoagulant therapy for permanect/persistent/paraoxysmal Afib or Aflutter: Yes Follow-up Appointment scheduled within 7 days?: Yes
== END 2019-06-14 11:00 | disposition home or self-care (01) | DRG 291 ==
LOC: ER 02:58 → EH 06:18 → OBSVTOIN 06:41 → 3S 15:30
PROVIDERS: ADMIT Internal Medicine; ATTEND Internal Medicine
DX: I11.0 Hypertensive heart disease with heart failure (principal); J81.0 Acute pulmonary edema; I50.23 Acute on chronic systolic (congestive) heart failure; I25.10 Atherosclerotic heart disease of native coronary artery without angina pectoris; E78.5 Hyperlipidemia, unspecified; F17.210 Nicotine dependence, cigarettes, uncomplicated; E78.00 Pure hypercholesterolemia, unspecified; Z79.01 Long term (current) use of anticoagulants; Z79.899 Other long term (current) drug therapy; Z82.49 Family history of ischemic heart disease and other diseases of the circulatory system
CPT/HCPCS: 36415; 71045; 80048; 80053; 80061; 82550; 82553; 83735; 83880; 84443; 84484; 85025; 85610; 93005; 93010; 96374; 96375; 99285; J1644; J1940; J3490

== ENCOUNTER → 2019-06-17 | Outpatient (CLI) | payer SELFPAY ==
[2019-06-17 14:41] LABS: INTERNATIONAL RATION (INR) 1.07; PROTHROMBIN TIME 13.9 SEC (11.4-15.4)
== END ==
LOC: OD 14:14
PROVIDERS: ATTEND Specialist
DX: I10 Essential (primary) hypertension (principal); I25.10 Atherosclerotic heart disease of native coronary artery without angina pectoris; I42.0 Dilated cardiomyopathy; I51.3 Intracardiac thrombosis, not elsewhere classified; F17.210 Nicotine dependence, cigarettes, uncomplicated; E78.5 Hyperlipidemia, unspecified; J44.9 Chronic obstructive pulmonary disease, unspecified; R94.30 Abnormal result of cardiovascular function study, unspecified; I25.2 Old myocardial infarction; Z79.899 Other long term (current) drug therapy
CPT/HCPCS: 36415; 85610

== ENCOUNTER 2019-09-16 02:09 | Emergency (ER) | payer MEDICAID ==
--- NOTE | 2019-09-16 03:32 | ER Document Report ---
ED Extremity Problem, Upper - General Chief Complaint: Arm Pain Stated Complaint: LEFT ARM PAIN Time Seen by Provider: 09/16/19 02:48 Primary Care Provider: CECILY SANCHEZ MD [Primary Care Provider] - Follow up as needed Notes: Patient is a 58-year-old male presents to the emergency department with left upper arm pain, numbness and tingling. Patient voices approximately an hour and a half prior to arrival to the emergency department he was watching TV. States he was sitting in bed leaning on his left elbow. States he started with some generalized pain in his "funny bone." States he then felt a tingling sensation in his left digits, more so in his left pinky and medial aspect of left ring finger. States these feelings have subsided. Patient voices he does have a history of congestive heart failure, coronary artery disease, hypertension, hyperlipidemia. States he is supposed to have a pacemaker placed on October 07. States he was told by his primary care provider "any time you have chest pain or pain in your left arm you should go to the ER." Patient is denying any chest pain, shortness of breath, shoulder pain, diaphoresis. Patient is currently denying any complaints at this time. States the numbness and tingling feeling has subsided. TRAVEL OUTSIDE OF THE [place] IN LAST 30 DAYS: No - Related Data Allergies/Adverse Reactions: No Known Allergies Allergy (Unverified 06/20/17 10:08) Past Medical History - General Information source: Patient - Social History Smoking Status: Current Every Day Smoker Chew tobacco use (# tins/day): No Frequency of alcohol use: Social Drug Abuse: None Family History: COPD, Hypertension Patient has suicidal ideation: No Patient has homicidal ideation: No - Past Medical History Cardiac Medical History: Reports: Hx Congestive Heart Failure - Ejection fraction 15%, Hx Hypercholesterolemia, Hx Hypertension Denies: Hx Atrial Fibrillation, Hx DVT, Hx Heart Attack, Hx Pulmonary Embolism Pulmonary Medical History: Reports: Hx Bronchitis Denies: Hx Asthma, Hx COPD Neurological Medical History: Denies: Hx Seizures Endocrine Medical History: Denies: Hx Diabetes Mellitus Type 1, Hx Diabetes Mellitus Type 2, Hx Hyperthyroidism, Hx Hypothyroidism Renal/ Medical History: Denies: Hx Peritoneal Dialysis GI Medical History: Denies: Hx Cirrhosis, Hx Hepatitis Musculoskeletal Medical History: Denies Hx Arthritis, Denies Hx Gout Skin Medical History: Denies Hx Eczema, Denies Hx Psoriasis Infectious Medical History: Denies: Hx Hepatitis Past Surgical History: Reports: Other - Throat surgery, vasectomy - Immunizations Hx Diphtheria, Pertussis, Tetanus Vaccination: Yes Hx Pneumococcal Vaccination: 08/26/18 Review of Systems - Review of Systems Constitutional: denies: Fever EENT: No symptoms reported Cardiovascular: See HPI Respiratory: See HPI Gastrointestinal: No symptoms reported Genitourinary: No symptoms reported Male Genitourinary: No symptoms reported Musculoskeletal: See HPI Skin: No symptoms reported Hematologic/Lymphatic: No symptoms reported Neurological/Psychological: See HPI Physical Exam - Notes Notes: GENERAL: Alert, interacts well. No acute distress. HEAD: Normocephalic, atraumatic. EYES: Pupils equal, round, and reactive to light. Extraocular movements intact. ENT: Oral mucosa moist, tongue midline. NECK: Full range of motion. Supple. Trachea midline. LUNGS: Clear to auscultation bilaterally, no wheezes, rales, or rhonchi. No respiratory distress. HEART: Regular rate and rhythm. No murmur ABDOMEN: Soft, non-tender. Non-distended. Bowel sounds present in all 4 quadrants. EXTREMITIES: Moves all 4 extremities spontaneously. No edema, normal radial and dorsalis pedis pulses bilaterally. No cyanosis. 5 out of 5 strength noted all 4 extremities. Capillary refill less than 2 seconds distally all 5 fingers left upper extremity. Patient can flex and extend all fingers on left hand against resistance. Full range of motion left shoulder, left elbow. No obvious trauma noted. BACK: no cervical, thoracic, lumbar midline tenderness. No saddle anesthesia, normal distal neurovascular exam. NEUROLOGICAL: Alert and oriented x3. Normal speech. cranial nerves II through XII grossly intact. PSYCH: Normal affect, normal mood. SKIN: Warm, dry, normal turgor. No rashes or lesions noted. Course - Re-evaluation Re-evalutation: 09/16/19 03:24 I have discussed this case with my attending Dr. Jo who reviewed the pts current and previous EKGs. EKG ordered by jumpbasting collar baster. Current EKG does show inverted T waves in II, III and aVF. Pt. continues to deny any CP, SOB, diaphoresis, left shoulder pain. Stated the numbess and tingling feeling in his left arm has subsided. Lengthy discussion with Pt. at bedside the EKG changes we are seeing and also the likely dx of an ulnar nerve compression. Risk vs benefits discussion held about doing delta troponins in the ED or having the pt. f/u with PCP and cardiology. Pt has family member in the room who is also in agreement that they would like to follow up with PCP in the morning. Stated they were going to call Dr. Malik in the AM for a routine pre-op apt for the pacemaker he is suppose to have placed. Discussed with Pt. and family we are unable to 100% say he is not having a cardiac event at this time and Pt. continues to want to refuse blood work and stated he will follow up with PCP and cardiology. Pt. is hemodynamically stable, stable for discharge. Discharge - Discharge Clinical Impression: Impingement of left ulnar nerve Condition: Stable Disposition: HOME, SELF-CARE Additional Instructions: As we discussed you have been seen and treated in the emergency department for likely compression of your ulnar nerve. We have also discussed the EKG changes we are seeing currently. You have opted to follow-up outpatient with primary care provider and cardiology. Please follow-up this morning. Please immediately return to the emergency room should you have any chest pain, shortness of breath,'s sweating episodes, left shoulder pain or return pain in your left upper extremity. Please also return to the emergency room for any other concerns. Referrals: CECILY SANCHEZ MD [Primary Care Provider] - Follow up as needed
[2019-09-16 04:10] VITALS: BP 133/89
--- NOTE | 2019-09-16 09:26 | EKG REPORT ---
SEVERITY:- ABNORMAL ECG - SINUS RHYTHM PROBABLE LEFT ATRIAL ABNORMALITY LEFT POSTERIOR FASCICULAR BLOCK : Confirmed by: Rola Inman MD 16-Sep-2019 09:25:28
== END 2019-09-16 03:50 | disposition home or self-care (01) ==
LOC: ER 02:09
DX: S64.02XA Injury of ulnar nerve at wrist and hand level of left arm, initial encounter (principal); M79.602 Pain in left arm; R20.0 Anesthesia of skin; X58.XXXA Exposure to other specified factors, initial encounter; I50.9 Heart failure, unspecified; I11.0 Hypertensive heart disease with heart failure; F17.200 Nicotine dependence, unspecified, uncomplicated
CPT/HCPCS: 93005; 93010; 99283

== ENCOUNTER → 2020-05-03 | Outpatient (CLI) | payer MEDICAID, OTHER ==
[2020-05-03 12:11] LABS: ABSOLUTE EOSINOPHILS # (AUTO) 0.1 10^3/uL (0.0-0.6); ABSOLUTE LYMPHOCYTES (AUTO) 1.3 10^3/uL (0.5-4.7); ABSOLUTE MONOCYTES (AUTO) 0.6 10^3/uL (0.1-1.4); ABSOLUTE NEUT (AUTO) 2.4 10^3/uL (1.7-8.2); BASOPHILS % (AUTO) 0.8 % (0-2); EOSINOPHILS % (AUTO) 3.1 % (0-6); HEMATOCRIT 41.3 % (37.9-51.0); HEMOGLOBIN 14.2 g/dL (13.5-17.0); LYMPHOCYTES % (AUTO) 30.3 % (13-45); MEAN CORPUSCULAR HEMOGLOBIN 32.6 pg (27.0-33.4); MEAN CORPUSCULAR HGB CONC 34.4 g/dL (32.0-36.0); MEAN CORPUSCULAR VOLUME 95 fl (80-97); MONOCYTES % (AUTO) 12.4 % (3-13); PLATELET COUNT 230 10^3/uL (150-450); RED BLOOD COUNT 4.35 10^6/uL (4.35-5.55); SEGMENTED NEUTROPHILS % (AUTO) 53.4 % (42-78); TOTAL CELLS COUNTED % (AUTO) 100 %; WHITE BLOOD COUNT 4.4 10^3/uL (4.0-10.5)
[2020-05-03 12:30] LABS: ALBUMIN 4.5 g/dL (3.5-5.0); ALKALINE PHOSPHATASE 65 U/L (38-126); ANION GAP 9 (5-19); ASPARTATE AMINO TRANSFERASE 31 U/L (17-59); BILIRUBIN,TOTAL 0.5 mg/dL (0.2-1.3); BLOOD UREA NITROGEN 24 mg/dL (7-20); CALCIUM 9.7 mg/dL (8.4-10.2); CARBON DIOXIDE 24 mmol/L (22-30); CHLORIDE 105 mmol/L (98-107); GLUCOSE 103 mg/dL (75-110); POTASSIUM 4.1 mmol/L (3.6-5.0); TOTAL PROTEIN 8.6 g/dL (6.3-8.2); TRIGLYCERIDES 225 mg/dL (<150)
[2020-05-03 12:41] LABS: DIRECT LDL 128 mg/dL (<100)
== END ==
LOC: OD 11:30
PROVIDERS: ATTEND Specialist
DX: I10 Essential (primary) hypertension (principal); I42.0 Dilated cardiomyopathy; I25.10 Atherosclerotic heart disease of native coronary artery without angina pectoris; E78.5 Hyperlipidemia, unspecified; I25.2 Old myocardial infarction; J44.9 Chronic obstructive pulmonary disease, unspecified; R94.30 Abnormal result of cardiovascular function study, unspecified; I95.9 Hypotension, unspecified; R06.00 Dyspnea, unspecified; Z79.899 Other long term (current) drug therapy; Z95.810 Presence of automatic (implantable) cardiac defibrillator
CPT/HCPCS: 36415; 80048; 80061; 80076; 83036; 85025

== ENCOUNTER 2020-05-05 21:02 | Emergency (ER) | payer SELFPAY ==
[2020-05-05 21:15] VITALS: BP 121/75
== END 2020-05-05 22:15 | disposition left against medical advice (07) ==
LOC: ER 21:02
DX: Z53.21 Procedure and treatment not carried out due to patient leaving prior to being seen by health care provider (principal)